=== PATIENT | female | born 1990 | race American Indian/Alaskan Native ===

== ENCOUNTER 2019-04-04 11:32 | Emergency (ER) | payer SELFPAY ==
--- NOTE | 2019-04-04 11:50 | Event Note ---
ED Screening Note Date of service: 04/04/19 Time: 11:47 ED Screening Note: 28 y o female presents with cc of chest pain with vomitting x 4 episodes today sx started 3 days no apettite due to nausea This initial assessment/diagnostic orders/clinical plan/treatment(s) is/are subject to change based on patients health status, clinical progression and re- assessment by fellow clinical providers in the ED. Further treatment and workup at subsequent clinical providers discretion. Patient/guardian urged not to elope from the ED as their condition may be serious if not clinically assessed and managed. Initial orders include: cbc,bmp, cxr,ua, upt
[2019-04-04 12:06] LABS: Basophils # (Auto) 0.1 K/mm3 (0.0-0.1); Basophils % (Auto) 1.2 % (0.0-1.8); Eosinophils # (Auto) 0.2 K/mm3 (0.0-0.4); Eosinophils % (Auto) 2.4 % (0.0-4.3); Hemoglobin 15.1 gm/dl (10.1-14.3); Lymphocytes # (Auto) 2.5 K/mm3 (1.2-5.4); Lymphocytes % (Auto) 32.4 % (13.4-35.0); Mean Corpuscular HGB Conc 34 % (30-34); Mean Corpuscular Volume 95 fl (79-97); Monocytes # (Auto) 0.5 K/mm3 (0.0-0.8); Monocytes % (Auto) 6.5 % (0.0-7.3); Platelet Count 335 K/mm3 (140-440); Red Blood Count 4.65 M/mm3 (3.65-5.03); Red Cell Distribution Width 13.4 % (13.2-15.2)
[2019-04-04 12:24] LABS: BUN/Creatinine Ratio 13; Blood Urea Nitrogen 10 mg/dL (7-17); Calcium 8.8 mg/dL (8.4-10.2); Hemolysis Index 15
[2019-04-04 12:31] LABS: Bilirubin,Urine NEG (Negative); Blood,Urine SM (Negative); Color,Urine Yellow (Yellow); HCG Qualitative,Urine Negative (Negative); Mucus,Urine FEW /HPF; Protein,Urine <15 mg/dL mg/dL (Negative); Urobilinogen,Urine < 2.0 mg/dL (<2.0)
--- NOTE | 2019-04-04 12:31 | Emergency Department Report ---
ED Shortness of Breath HPI - General Chief Complaint: Dyspnea/Respdistress Stated Complaint: SOB/SHARP PAIN Time Seen by Provider: 04/04/19 11:45 Source: EMS Mode of arrival: Ambulatory Limitations: No Limitations - History of Present Illness Initial Comments: Patient is 28 years old female with no significant past medical history. Patient presented to the ER via EMS complaining of chest pain, tightness in nature for the last 4 days associated with shortness of breath. Patient stated that she had a history of chronic anxiety and she think this is another episode. Patient denied any fever or chills. She stated that she is slightly nauseated and vomited twice this morning. MD Complaint: shortness of breath, chest pain -: days(s) (4) - Related Data Previous Rx's Medication Instructions Recorded Last Taken Type Ondansetron [Zofran ODT TAB] 4 mg PO Q8HR PRN #12 tab.rapdis 10/07/16 Unknown Rx metroNIDAZOLE [Flagyl] 500 mg PO Q12HR #14 tab 10/07/16 Unknown Rx traMADol [Ultram 50 MG tab] 50 mg PO Q6HR PRN #15 tablet 10/07/16 Unknown Rx Allergies Allergy/AdvReac Type Severity Reaction Status Date / Time No Known Allergies Allergy Verified 10/02/14 04:48 ED Review of Systems ROS: Stated complaint: SOB/SHARP PAIN Other details as noted in HPI Comment: All other systems reviewed and negative Constitutional: denies: chills, fever Respiratory: shortness of breath. denies: cough, orthopnea, SOB with exertion, SOB at rest Cardiovascular: chest pain. denies: palpitations Gastrointestinal: nausea, vomiting. denies: abdominal pain, diarrhea, constipation, hematemesis, melena, hematochezia Genitourinary: denies: dysuria Musculoskeletal: denies: back pain ED Past Medical Hx - Past Medical History Previous Medical History?: Yes Additional medical history: Vaginal delivery x 1 - Surgical History Past Surgical History?: No - Social History Smoking Status: Current Every Day Smoker Substance Use Type: Alcohol, Marijuana - Medications Home Medications: Home Medications Medication Instructions Recorded Confirmed Last Taken Type Ondansetron [Zofran ODT TAB] 4 mg PO Q8HR PRN #12 tab.rapdis 10/07/16 Unknown Rx metroNIDAZOLE [Flagyl] 500 mg PO Q12HR #14 tab 10/07/16 Unknown Rx traMADol [Ultram 50 MG tab] 50 mg PO Q6HR PRN #15 tablet 10/07/16 Unknown Rx ED Physical Exam - General Limitations: No Limitations General appearance: alert, in no apparent distress, anxious - Head Head exam: Present: atraumatic, normocephalic, normal inspection - Eye Eye exam: Present: normal appearance, PERRL - ENT ENT exam: Present: normal exam, normal orophraynx, mucous membranes moist - Neck Neck exam: Present: normal inspection, full ROM. Absent: tenderness, meningismus, lymphadenopathy - Respiratory Respiratory exam: Present: normal lung sounds bilaterally - Cardiovascular Cardiovascular Exam: Present: regular rate, normal rhythm, normal heart sounds - GI/Abdominal GI/Abdominal exam: Present: soft, normal bowel sounds. Absent: distended, tenderness, guarding, rebound, rigid, organomegaly, mass, bruit, pulsatile mass, hernia - Extremities Exam Extremities exam: Present: normal inspection, full ROM, normal capillary refill - Back Exam Back exam: Present: normal inspection, full ROM. Absent: CVA tenderness (R), CVA tenderness (L), muscle spasm, paraspinal tenderness, vertebral tenderness - Neurological Exam Neurological exam: Present: alert, oriented X3, CN II-XII intact, normal gait, reflexes normal - Skin Skin exam: Present: warm, intact, normal color ED Course Vital Signs 04/04/19 11:36 Temperature 98.3 F Pulse Rate 70 Respiratory 18 Rate Blood Pressure 123/72 O2 Sat by Pulse 99 Oximetry ED Medical Decision Making - Lab Data Result diagrams: 04/04/19 11:56 04/04/19 11:56 - EKG Data -: EKG Interpreted by Dc EKG shows normal: sinus rhythm - EKG Data Interpretation: no acute changes - Radiology Data Radiology results: report reviewed - Medical Decision Making Patient is 28 years old female with no significant past medical history. Patient presented to the ER via EMS complaining of chest pain, tightness in nature for the last 4 days associated with shortness of breath. Patient stated that she had a history of chronic anxiety and she think this is another episode. Patient denied any fever or chills. She stated that she is slightly nauseated and vomited twice this morning. Patient EKG is unremarkable. Chest x-ray is unremarkable. D-dimer is negative. Patient now is stating that she feels depressed and anxious because her friends in the last 2 month. Patient denied any suicidal or homicidal ideation. Patient also denied any auditory or visual hallucination. Patient evaluated by our mental health team and referred to outpatient follow- up. Critical care attestation.: If time is entered above; I have spent that time in minutes in the direct care of this critically ill patient, excluding procedure time. ED Disposition Clinical Impression: Chest pain, Anxiety attack Disposition: - TO HOME OR SELFCARE Is pt being admited?: No Condition: Stable Instructions: Chest Pain (ED), Anxiety (ED) Referrals: PRIMARY CARE, [Primary Care Provider] - 3-5 Days
--- NOTE | 2019-04-04 15:53 | XRay Report ---
CHEST 1 VIEW INDICATION / CLINICAL INFORMATION: Dyspnea. COMPARISON: None available. FINDINGS: SUPPORT DEVICES: None. HEART / MEDIASTINUM: No significant abnormality. LUNGS / PLEURA: No significant pulmonary or pleural abnormality. No pneumothorax. ADDITIONAL FINDINGS: No significant additional findings. IMPRESSION: 1. No acute findings. Signer Name: López Tobias MD Signed: 04/04/2019 3:48 PM Workstation Name: [id number]
[2019-04-04 16:32] VITALS: BP 118/68
== END 2019-04-04 16:31 | disposition home or self-care (01) ==
LOC: ED 11:32
DX: F41.9 Anxiety disorder, unspecified (principal); R07.89 Other chest pain; F17.200 Nicotine dependence, unspecified, uncomplicated; F12.10 Cannabis abuse, uncomplicated; Z79.899 Other long term (current) drug therapy
CPT/HCPCS: 36415; 71046; 80048; 81001; 81025; 83690; 83880; 85025; 85379; 93005; 93010; 99284

== ENCOUNTER 2021-03-10 13:48 | Emergency (ER) | payer SELFPAY ==
[2021-03-10 15:11] VITALS: BP 120/77
--- NOTE | 2021-03-10 17:20 | Emergency Department Report ---
ED Extremity Problem HPI - General Chief complaint: Extremity Problem,Nontraumatic Stated complaint: BRUISES ON LEG Time Seen by Provider: 03/10/21 16:51 Source: patient Mode of arrival: Ambulatory Limitations: No Limitations - History of Present Illness Initial comments: Is a pleasant 30-year-old female who presents to the emergency department chief complaint of a ecchymosis to the left posterior calf. She denies any injuries. She reports she has noticed this today after work. She denies any associated fevers, chills, night sweats, headache, dizziness, blurry vision, chest pain, shortness of breath, weakness or any other associated symptoms. - Related Data Previous Rx's Medication Instructions Recorded Last Taken Type Ondansetron [Zofran ODT TAB] 4 mg PO Q8HR PRN #12 tab.rapdis 10/07/16 Unknown Rx metroNIDAZOLE [Flagyl] 500 mg PO Q12HR #14 tab 10/07/16 Unknown Rx traMADoL [Ultram 50 MG tab] 50 mg PO Q6HR PRN #15 tablet 10/07/16 Unknown Rx ALPRAZolam [Xanax TAB] 0.5 mg PO BID PRN #14 tab 04/04/19 Unknown Rx Allergies Allergy/AdvReac Type Severity Reaction Status Date / Time No Known Allergies Allergy Verified 10/02/14 04:48 ED Review of Systems ROS: Stated complaint: BRUISES ON LEG Other details as noted in HPI Constitutional: denies: chills, fever Eyes: denies: eye pain, eye discharge, vision change ENT: denies: ear pain, throat pain Respiratory: denies: cough, shortness of breath, wheezing Cardiovascular: denies: chest pain, palpitations Endocrine: no symptoms reported Gastrointestinal: denies: abdominal pain, nausea, diarrhea Genitourinary: denies: urgency, dysuria, discharge Musculoskeletal: as per HPI. denies: back pain, joint swelling, arthralgia Skin: denies: rash, lesions Neurological: denies: headache, weakness, paresthesias Psychiatric: denies: anxiety, depression Hematological/Lymphatic: denies: easy bleeding, easy bruising ED Past Medical Hx - Past Medical History Previous Medical History?: No Additional medical history: Vaginal delivery x 1 - Surgical History Past Surgical History?: No - Social History Smoking Status: Current Every Day Smoker Substance Use Type: Alcohol, Marijuana - Medications Home Medications: Home Medications Medication Instructions Recorded Confirmed Last Taken Type Ondansetron [Zofran ODT TAB] 4 mg PO Q8HR PRN #12 tab.rapdis 10/07/16 Unknown Rx metroNIDAZOLE [Flagyl] 500 mg PO Q12HR #14 tab 10/07/16 Unknown Rx traMADoL [Ultram 50 MG tab] 50 mg PO Q6HR PRN #15 tablet 10/07/16 Unknown Rx ALPRAZolam [Xanax TAB] 0.5 mg PO BID PRN #14 tab 04/04/19 Unknown Rx ED Physical Exam - General Limitations: No Limitations General appearance: alert, in no apparent distress - Head Head exam: Present: atraumatic, normocephalic - Eye Eye exam: Present: normal appearance, PERRL, EOMI Pupils: Present: normal accommodation - ENT ENT exam: Present: normal exam, normal orophraynx, mucous membranes moist - Neck Neck exam: Present: normal inspection, full ROM. Absent: tenderness, meningismus - Respiratory Respiratory exam: Present: normal lung sounds bilaterally. Absent: respiratory distress, wheezes, rales, rhonchi, stridor - Cardiovascular Cardiovascular Exam: Present: regular rate, normal rhythm, normal heart sounds. Absent: systolic murmur, diastolic murmur, rubs, gallop - GI/Abdominal GI/Abdominal exam: Present: soft, normal bowel sounds. Absent: distended, tenderness, guarding - Extremities Exam Extremities exam: Present: full ROM, other (There is a 6 cm area of ecchymosis to the left posterior calf. No tenderness palpation. Negative Homans' sign bilaterally. Normal DP and PT pulses bilaterally.) - Back Exam Back exam: Present: normal inspection, full ROM. Absent: tenderness, CVA tenderness (R), CVA tenderness (L) - Neurological Exam Neurological exam: Present: alert, oriented X3, normal gait - Psychiatric Psychiatric exam: Present: normal affect, normal mood - Skin Skin exam: Present: warm, dry, intact, normal color. Absent: rash ED Course Vital Signs 03/10/21 15:10 Temperature 98.7 F Pulse Rate 98 H Respiratory 18 Rate Blood Pressure 120/77 [Right] O2 Sat by Pulse 100 Oximetry ED Medical Decision Making - Medical Decision Making Patient is nontoxic in no acute distress. She is PERC negative and a low risk by Wells criteria. She did have this area of ecchymosis I did order an ultrasound Doppler to rule out DVT however the patient decided she cannot wait for this test and said she wanted to leave. Patient understood that I cannot rule out an acute process such as DVT although I think this is unlikely at this time. She understood that by leaving she was risking her life or event apartment disability if DVT was missed. She is competent and able to make this decision. At this time would not make the patient sign out AGAINST MEDICAL ADVICE due to my low suspicion for DVT but she understood that she could return at any point to have this test done and for reevaluation. - Differential Diagnosis Traumatic ecchymosis, cellulitis, DVT Critical care attestation.: If time is entered above; I have spent that time in minutes in the direct care of this critically ill patient, excluding procedure time. ED Disposition Clinical Impression: Ecchymosis Disposition: DC-01 TO HOME OR SELFCARE Is pt being admited?: No Condition: Stable Instructions: Contusion, [id number] Referrals: PRIMARY CARE, [Primary Care Provider] - 3-5 Days Time of Disposition: 17:20
== END 2021-03-10 17:22 | disposition home or self-care (01) ==
LOC: ED 13:48
DX: S80.12XA Contusion of left lower leg, initial encounter (principal); F17.290 Nicotine dependence, other tobacco product, uncomplicated; X58.XXXA Exposure to other specified factors, initial encounter; Y93.89 Activity, other specified; Y92.89 Other specified places as the place of occurrence of the external cause; Y99.8 Other external cause status
CPT/HCPCS: 99281

== ENCOUNTER 2022-01-09 10:46 | Outpatient (CLI) | payer OTHER ==
[2022-01-09 12:51] VITALS: BP 116/58
--- NOTE | 2022-01-09 14:09 | Ultrasound Report ---
ULTRASOUND OBSTETRIC LIMITED ULTRASOUND BIOPHYSICAL PROFILE INDICATION / CLINICAL INFORMATION: Full WILLIAM. Clinical Gestational Age (GA) in weeks, days: 39, 1 TECHNIQUE: Transabdominal. COMPARISON: None available. FINDINGS: BREATHING MOVEMENT = 2 GROSS BODY MOVEMENT = 2 TONE = 2 QUALITATIVE AMNIOTIC FLUID VOLUME = 2 TOTAL BIOPHYSICAL SCORE = 8/8 HEART RATE (beats per minute): 152 AMNIOTIC FLUID INDEX (cm) = 7.3 (normal = 7-24 cm) PRESENTATION: Cephalic. ADDITIONAL FINDINGS: None. IMPRESSION: 1. Biophysical Score = 8/8 2. Amniotic fluid index lower limits of normal. Signer Name: Oscar Carroll MD Signed: 01/09/2022 2:04 PM Workstation Name: [id number]
== END 2022-01-09 16:21 | disposition home or self-care (01) ==
LOC: APU 10:46 → TRG 10:46
PROVIDERS: ATTEND Obstetrics & Gynecology
DX: Z34.93 Encounter for supervision of normal pregnancy, unspecified, third trimester (principal); Z3A.39 39 weeks gestation of pregnancy
CPT/HCPCS: 59025; 76815; 76819; Q0177

== ENCOUNTER 2022-01-22 16:12 | Inpatient (IN) | payer OTHER ==
[2022-01-22] MEDS ORDERED: PROMETHAZINE 25 MG TAB PO PRN (17:54)
[2022-01-22] MEDS ORDERED: LIDOCAINE (2%) 20 MG/1 ML VIAL 20 ML MDV INFILTRATI ONE (17:54)
[2022-01-22] MEDS ORDERED: ACETAMINOPHEN 325 MG TAB PO PRN (17:54)
[2022-01-22] MEDS ORDERED: fentaNYL 100 MCG/2 ML INJ IV PRN (17:54)
[2022-01-22] MEDS ORDERED: BUTORPHANOL 2 MG/1 ML INJ IV PRN (17:54)
[2022-01-22] MEDS ORDERED: TERBUTALINE 1 MG/1 ML INJ SUB-Q PRN (17:54)
[2022-01-22] MEDS ORDERED: MINERAL OIL 30 ML ORAL LIQD PO PRN (17:54)
[2022-01-22] MEDS ORDERED: ePHEDrine SULFATE 50 MG/1 ML INJ IV PRN (17:54)
[2022-01-22] MEDS ORDERED: ONDANSETRON 4 MG/2 ML INJ IV PRN (17:54)
[2022-01-22] MEDS ORDERED: OXYTOCIN DRIP 30 UNITS/500 ML BAG IV SCH (18:00)
--- NOTE | 2022-01-22 18:49 | History and Physical Report ---
<DAVID GRULLON G - Last Filed: 01/22/22 18:45> History of Present Illness Date of examination: 01/22/22 Date of admission: 01/22/22 16:13 History of present illness: Patient presented for induction. This is a 31-year-old female at 41 weeks who was seen in office today for evaluation and ultrasound revealed a amniotic fluid index of 4.7 cm. 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 no EDC Confirmation: 01/15/2022 Past History : 2 Term Births: 1 Premature Births: 0 Living Children: 1 Para: 1 Mult. Births: 0 Prev : 0 Aborta: 0 Elect. Ab: 0 Spont. Ab: 0 Ectopics: 0 # 1 Delivery date: 02/28/2010 Weeks Gestation: 40 Delivery type: Vaginal Anesthesia type: epidural Delivery location: [facility] Sex: male weight: 8lbs Name: Felipe Comments: no complications Past Medical History: Negative Past Medical History Past Surgical History: negative Family History Summary: Mother - Has Family History of Diabetes - General Comments - FH: NO BREAST, OVARIAN OR COLON CANCER Social History: SINGLE, NO ETOH, NO ILLICIT DRUG USE, NO TOBACCO USE Patient is single Smoking History: Patient has never smoked. 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 % Family History Risk Factors: Family History of AR in 1 Female Relative Age < 65: no Family History of AR in 1 Male Relative Age < 55: no No Dietary Counseling Reason: pn yes PAP Smear History: Date of Last PAP Smear: 09/05/2020 Results: Normal Alcohol Use: no Drug Use: no Past Medical History Anesthesia Complications: negative Anemia: negative Autoimmune Disorder: negative Bleeding Disorder: negative Blood Transfusions: negative Breast Disease: negative Diabetes: negative Heart Disease: negative Hypertension: negative Hepatitis/Liver Disease: negative Kidney Disease/UTI: negative Neurologic/Epilepsy/Migraines: negative Phlebitis/Varicosities: negative Psychiatric: negative Pulmonary Disease/Asthma: negative Thyroid Disease: negative Hospitalizations: negative Surgery (Non-tattoo designer): negative Abnormal PAP: negative, reports normal pap results sep 2020 MASOUD Exposure: negative Infertility: negative Uterine Anomaly: negative Uterine Surgery (not C/S): negative Other Gynecologic Problems: negative Social Hx: SINGLE, NO ETOH, NO ILLICIT DRUG USE, NO TOBACCO USE Patient is single Smoking History: Patient has never smoked. Infection History Hx of STD: none HIV Risk Eval: no Hepatitis B Risk Eval: low risk Personal hx. of genital herpes: no Partner hx. of genital herpes: no Rash, Viral, or Febrile illness since last LMP? no Varicella/Chicken Pox Status: Unknown TB Risk: no Genetic History Congenital Heart Defect: Mom: no Dad: no Frannie Disease: Mom: no Dad: no Thalassemia Mom: no Dad: no Neural Tube Defect Mom: no Dad: no Down's Syndrome Mom: no Dad: no Mark-Sachs Mom: no Dad: no Sickle Cell Disease/Trait Mom: no Dad: no Hemophilia Mom: no Dad: no Muscular Dystrophy Mom: no Dad: no Cystic Fibrosis Mom: no Dad: no Gelacio Chorea Mom: no Dad: no Mental Retardation Mom: no Dad: no Fragile X Mom: no Dad: no Other Genetic/Chromosomal Disorder Mom: no Dad: no Child w/other defect Mom: no Dad: no Enviromental Exposures Enviromental Exposures Reviewed Xray Exposure: no Medication, drug, or alcohol use since LMP: no Chemical/Other Exposure: no Exposure to Cat Liter: no Hx of Parvovirus (Fifth Disease): no Occupational Exposure to Children: none Current Allergies (reviewed today): No known allergies Past History Past Medical History: other (SEE HPI) Past Surgical History: other (SEE HPI) 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 (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) Family/Genetic History: other (SEE HPI) Social history: full code, other (SEE HPI) - Obstetrical History Expected Date of Delivery: 01/15/22 Actual Gestation: 41 Week(s) 0 Day(s) : 2 Para: 1 Hx # Term Pregnancies: 1 Number of Pregnancies: 0 Spontaneous Abortions: 0 Induced : 0 Number of Living Children: 1 Medications and Allergies Allergies Allergy/AdvReac Type Severity Reaction Status Date / Time No Known Allergies Allergy Verified 10/02/14 04:48 Home Medications Medication Instructions Recorded Confirmed Last Taken Type Ondansetron [Zofran ODT TAB] 4 mg PO Q8HR PRN #12 tab.rapdis 10/07/16 Unknown Rx metroNIDAZOLE [Flagyl] 500 mg PO Q12HR #14 tab 10/07/16 Unknown Rx traMADoL [Ultram 50 MG tab] 50 mg PO Q6HR PRN #15 tablet 10/07/16 Unknown Rx ALPRAZolam [Xanax TAB] 0.5 mg PO BID PRN #14 tab 04/04/19 Unknown Rx Amoxicillin [Amoxicillin TAB] 875 mg PO BID #20 tablet 07/31/21 Unknown Rx Lidocaine Viscous 2% 5 ml MM Q4H #240 udc 07/31/21 Unknown Rx Active Meds: Active Medications Acetaminophen (Acetaminophen 325 Mg Tab) 650 mg PO Q4H PRN PRN Reason: Pain, Mild (1-3) Butorphanol Tartrate (Butorphanol 2 Mg/1 Ml Inj) 2 mg IV Q2H PRN PRN Reason: Pain , Severe (7-10) Ephedrine Sulfate (Ephedrine Sulfate 50 Mg/1 Ml Inj) 10 mg IV Q2M PRN PRN Reason: Hypotension Fentanyl (Fentanyl 100 Mcg/2 Ml Inj) 100 mcg IV Q2H PRN PRN Reason: Pain , Severe (7-10) Lactated Ringer's (Lactated Ringers) 1,000 mls @ 125 mls/hr IV DIRECT TONY Oxytocin/Sodium Chloride (Pitocin/Ns 30 Unit/500ml) 30 units in 500 mls @ 40 mls/hr IV TITR TONY; Protocol Mineral Oil (Mineral Oil 30 Ml Oral Liqd) 30 ml PO QHS PRN PRN Reason: Constipation Ondansetron HCl (Ondansetron 4 Mg/2 Ml Inj) 4 mg IV Q8H PRN PRN Reason: Nausea And Vomiting Promethazine HCl (Promethazine 25 Mg Tab) 25 mg PO Q6H PRN PRN Reason: Nausea And Vomiting Terbutaline Sulfate (Terbutaline 1 Mg/1 Ml Inj) 0.25 mg SUB-Q ONCE PRN PRN Reason: Hyperstimulation/Hypertonicity - Vital Signs Vital signs: Vital Signs Pulse BP 88 108/75 01/22/22 17:00 01/22/22 17:00 Temp Pulse Resp BP Pulse Ox 98.4 F 78 16 129/62 98 01/22/22 17:14 01/22/22 18:43 01/22/22 17:14 01/22/22 18:42 01/22/22 18:43 - Physical Exam Breasts: Positive: deferred Cardiovascular: Regular rate Lungs: Positive: Normal air movement Abdomen: Positive: normal appearance Uterus: Positive: enlarged - Obstetrical FHR: category 1 Uterine Contraction Pattern: Absent Results All other labs normal. Assessment and Plan - Patient Problems (1) Post term at 41 weeks gestation Current Visit: Yes Status: Acute Plan to address problem: Patient is admitted for serial induction. Explained the nature of serial induction with the patient will have cervical ripening done this evening with Pitocin plan on tomorrow. (2) Oligohydramnios in siddiqi in third trimester Current Visit: Yes Status: Acute (3) BMI 37.0-37.9, adult Current Visit: Yes Status: Acute <NELSON RIVERS - Last Filed: 01/22/22 22:30> History of Present Illness Date of admission: 01/22/22 16:13 Past History Past Medical History: no pertinent history Past Surgical History: no surgical history Family/Genetic History: none Social history: no significant social history Medications and Allergies Active Meds: Active Medications Acetaminophen (Acetaminophen 325 Mg Tab) 650 mg PO Q4H PRN PRN Reason: Pain, Mild (1-3) Butorphanol Tartrate (Butorphanol 2 Mg/1 Ml Inj) 2 mg IV Q2H PRN PRN Reason: Pain , Severe (7-10) Ephedrine Sulfate (Ephedrine Sulfate 50 Mg/1 Ml Inj) 10 mg IV Q2M PRN PRN Reason: Hypotension Fentanyl (Fentanyl 100 Mcg/2 Ml Inj) 100 mcg IV Q2H PRN PRN Reason: Pain , Severe (7-10) Lactated Ringer's (Lactated Ringers) 1,000 mls @ 125 mls/hr IV DIRECT TONY Oxytocin/Sodium Chloride (Pitocin/Ns 30 Unit/500ml) 30 units in 500 mls @ 40 m ls/hr IV TITR TONY; Protocol Mineral Oil (Mineral Oil 30 Ml Oral Liqd) 30 ml PO QHS PRN PRN Reason: Constipation Ondansetron HCl (Ondansetron 4 Mg/2 Ml Inj) 4 mg IV Q8H PRN PRN Reason: Nausea And Vomiting Promethazine HCl (Promethazine 25 Mg Tab) 25 mg PO Q6H PRN PRN Reason: Nausea And Vomiting Terbutaline Sulfate (Terbutaline 1 Mg/1 Ml Inj) 0.25 mg SUB-Q ONCE PRN PRN Reason: Hyperstimulation/Hypertonicity Review of Systems All systems: negative - Vital Signs Vital signs: Vital Signs Pulse BP 88 108/75 01/22/22 17:00 01/22/22 17:00 Temp Pulse Resp BP Pulse Ox 98.4 F 78 18 126/69 88 01/22/22 21:17 01/22/22 22:13 01/22/22 21:17 01/22/22 22:13 01/22/22 22:12 Results Result Diagrams: 01/22/22 18:40 All other labs normal. GBS NEGATIVE A Positive Antibody Screen Negative HIV Negative Hep B Negative Hep C Negative Rubella IMMUNE Assessment and Plan A: 31 y.o. @ 41 wks, IOL d/t postdates and Oligohydramnios. - Patient Problems (1) Oligohydramnios in siddiqi in third trimester Current Visit: Yes Status: Acute Plan to address problem: Continue to monitor status through EFM. (2) Post term at 41 weeks gestation Current Visit: Yes Status: Acute Plan to address problem: Admit to labor and delivery. Initiate IV. Draw Admission labs. Pain management: IV pain medication and epidural when pt desires. Initiate IOL with Cervidil.
[2022-01-22 19:08] LABS: Hematocrit 39.2 % (30.3-42.9); Hemoglobin 13.4 gm/dl (10.1-14.3); Mean Corpuscular HGB Conc 34 % (30-34); Mean Corpuscular Volume 89 fl (79-97); Platelet Count 237 K/mm3 (140-440); Red Blood Count 4.39 M/mm3 (3.65-5.03); Red Cell Distribution Width 14.8 % (13.2-15.2)
[2022-01-22] MEDS ORDERED: DINOPROSTONE 10 MG VAG SUPP VG ONE (19:22)
[2022-01-22] MEDS: LACTATED RINGERS 1,000 ML IV SCH (21:10)
--- NOTE | 2022-01-22 22:23 | Event Note ---
Date: 01/22/22 Cervidil placed at 2217 without difficulty. Cervical exam /.
--- NOTE | 2022-01-23 07:31 | Event Note ---
Date: 01/23/22 CAT 1 tracing, cervidil to be removed @ 1015 this morning. Plan to allow AM care and a lite meal, then start pitocin by 1200. All questions address, patient agrees with plan of care. Plan also reviewed with lindsey GONZALEZ.
[2022-01-23] MEDS: LACTATED RINGERS 1,000 ML IV SCH ×2 (10:30→18:53)
[2022-01-23] MEDS ORDERED: OXYTOCIN DRIP 30 UNITS/500 ML BAG IV ONE (11:00)
[2022-01-23] MEDS ORDERED: LIDOCAINE MPF (2%) 20 MG/1 ML VIAL 5 ML ONE ×3 (13:52→23:42)
[2022-01-23] MEDS: fentaNYL-BUPIV 2 MCG/ML-0.125% 200 MCG/100 ML BAG EPIDURAL SCH ×2 (14:19→21:57)
--- NOTE | 2022-01-23 14:24 | Progress Note ---
Assessment and Plan Pt comfortable s/p epidural. continue titration of pitocin as needed to maintain adequate ctx. SVE done - no obvious BOW noted. Pt denies previous leaking. no s/s of SROM on perineum or bed. Will reeval PRN. All questions addressed, anticipate . Subjective - Subjective Date of service: 01/23/22 Principal diagnosis: IUP @ 41+1; IOL for oligo and postdates Patient reports: no new complaints Objective - Vital Signs Vital Signs: Vital Signs - 12hr 01/23/22 01/23/22 01/23/22 02:24 02:27 02:28 Temperature Pulse Rate 71 78 73 Respiratory Rate Blood Pressure 143/69 Blood Pressure [Left] O2 Sat by Pulse 92 96 Oximetry O2 Sat by Pulse Oximetry [ Bilateral Throughout] 01/23/22 01/23/22 01/23/22 02:33 02:37 02:38 Temperature Pulse Rate 80 83 84 Respiratory Rate Blood Pressure Blood Pressure [Left] O2 Sat by Pulse 96 94 95 Oximetry O2 Sat by Pulse Oximetry [ Bilateral Throughout] 01/23/22 01/23/22 01/23/22 02:42 02:45 02:50 Temperature Pulse Rate 156 H 83 Respiratory Rate Blood Pressure Blood Pressure [Left] O2 Sat by Pulse 89 86 98 Oximetry O2 Sat by Pulse Oximetry [ Bilateral Throughout] 01/23/22 01/23/22 01/23/22 02:55 02:57 03:02 Temperature Pulse Rate 88 86 Respiratory Rate Blood Pressure Blood Pressure [Left] O2 Sat by Pulse 96 94 91 Oximetry O2 Sat by Pulse Oximetry [ Bilateral Throughout] 01/23/22 01/23/22 01/23/22 03:04 03:09 03:12 Temperature Pulse Rate 85 83 79 Respiratory Rate Blood Pressure 125/58 Blood Pressure [Left] O2 Sat by Pulse 99 97 Oximetry O2 Sat by Pulse Oximetry [ Bilateral Throughout] 01/23/22 01/23/22 01/23/22 03:14 03:15 03:19 Temperature Pulse Rate 80 90 74 Respiratory Rate Blood Pressure Blood Pressure [Left] O2 Sat by Pulse 97 94 99 Oximetry O2 Sat by Pulse Oximetry [ Bilateral Throughout] 01/23/22 01/23/22 01/23/22 03:22 03:24 03:27 Temperature Pulse Rate 81 86 76 Respiratory Rate Blood Pressure 125/60 Blood Pressure [Left] O2 Sat by Pulse 93 99 Oximetry O2 Sat by Pulse Oximetry [ Bilateral Throughout] 01/23/22 01/23/22 01/23/22 03:29 03:34 03:39 Temperature Pulse Rate 79 75 78 Respiratory Rate Blood Pressure Blood Pressure [Left] O2 Sat by Pulse 98 96 97 Oximetry O2 Sat by Pulse Oximetry [ Bilateral Throughout] 01/23/22 01/23/22 01/23/22 03:42 03:44 03:49 Temperature Pulse Rate 78 81 80 Respiratory Rate Blood Pressure 124/60 Blood Pressure [Left] O2 Sat by Pulse 97 97 Oximetry O2 Sat by Pulse Oximetry [ Bilateral Throughout] 01/23/22 01/23/22 01/23/22 03:54 03:58 03:59 Temperature Pulse Rate 80 82 79 Respiratory Rate Blood Pressure 125/65 Blood Pressure [Left] O2 Sat by Pulse 97 97 Oximetry O2 Sat by Pulse Oximetry [ Bilateral Throughout] 01/23/22 01/23/22 01/23/22 04:04 04:07 04:09 Temperature Pulse Rate 88 76 84 Respiratory Rate Blood Pressure Blood Pressure [Left] O2 Sat by Pulse 97 94 96 Oximetry O2 Sat by Pulse Oximetry [ Bilateral Throughout] 01/23/22 01/23/22 01/23/22 04:10 04:12 04:14 Temperature 98.0 F Pulse Rate 78 90 Respiratory Rate Blood Pressure 121/61 Blood Pressure [Left] O2 Sat by Pulse 94 Oximetry O2 Sat by Pulse Oximetry [ Bilateral Throughout] 01/23/22 01/23/22 01/23/22 04:19 04:20 04:24 Temperature Pulse Rate 76 75 89 Respiratory Rate Blood Pressure Blood Pressure [Left] O2 Sat by Pulse 97 93 99 Oximetry O2 Sat by Pulse Oximetry [ Bilateral Throughout] 01/23/22 01/23/22 01/23/22 04:27 04:29 04:30 Temperature Pulse Rate 78 76 93 H Respiratory Rate Blood Pressure 142/65 Blood Pressure [Left] O2 Sat by Pulse 97 93 Oximetry O2 Sat by Pulse Oximetry [ Bilateral Throughout] 01/23/22 01/23/22 01/23/22 04:34 04:35 04:39 Temperature Pulse Rate 83 83 90 Respiratory Rate Blood Pressure Blood Pressure [Left] O2 Sat by Pulse 96 94 99 Oximetry O2 Sat by Pulse Oximetry [ Bilateral Throughout] 01/23/22 01/23/2201/23/22 04:41 04:42 04:44 Temperature Pulse Rate 83 87 90 Respiratory Rate Blood Pressure 138/64 Blood Pressure [Left] O2 Sat by Pulse 93 98 Oximetry O2 Sat by Pulse Oximetry [ Bilateral Throughout] 01/23/22 01/23/22 01/23/22 04:49 04:50 04:54 Temperature 98.0 F Pulse Rate 93 H 82 Respiratory Rate Blood Pressure Blood Pressure [Left] O2 Sat by Pulse 94 93 Oximetry O2 Sat by Pulse Oximetry [ Bilateral Throughout] 01/23/22 01/23/22 01/23/22 04:55 04:57 04:59 Temperature Pulse Rate 95 H 80 84 Respiratory Rate Blood Pressure 142/71 Blood Pressure [Left] O2 Sat by Pulse 91 97 Oximetry O2 Sat by Pulse Oximetry [ Bilateral Throughout] 01/23/22 01/23/22 01/23/22 05:04 05:09 05:12 Temperature Pulse Rate 79 84 77 Respiratory Rate Blood Pressure 147/65 Blood Pressure [Left] O2 Sat by Pulse 98 99 Oximetry O2 Sat by Pulse Oximetry [ Bilateral Throughout] 01/23/22 01/23/22 01/23/22 05:14 05:19 05:21 Temperature Pulse Rate 79 79 59 L Respiratory Rate Blood Pressure Blood Pressure [Left] O2 Sat by Pulse 98 97 82 L Oximetry O2 Sat by Pulse Oximetry [ Bilateral Throughout] 01/23/22 01/23/22 01/23/22 05:27 05:28 05:32 Temperature Pulse Rate 84 78 79 Respiratory Rate Blood Pressure 134/61 Blood Pressure [Left] O2 Sat by Pulse 99 98 Oximetry O2 Sat by Pulse Oximetry [ Bilateral Throughout] 01/23/22 01/23/22 01/23/22 05:37 05:42 05:43 Temperature Pulse Rate 74 77 81 Respiratory Rate Blood Pressure 143/61 Blood Pressure [Left] O2 Sat by Pulse 99 99 Oximetry O2 Sat by Pulse Oximetry [ Bilateral Throughout] 01/23/22 01/23/22 01/23/22 05:47 05:52 05:57 Temperature Pulse Rate 82 79 75 Respiratory Rate Blood Pressure 111/54 Blood Pressure [Left] O2 Sat by Pulse 99 98 99 Oximetry O2 Sat by Pulse Oximetry [ Bilateral Throughout] 01/23/22 01/23/22 01/23/22 06:02 06:07 06:12 Temperature Pulse Rate 77 81 75 Respiratory Rate Blood Pressure 114/55 Blood Pressure [Left] O2 Sat by Pulse 98 98 96 Oximetry O2 Sat by Pulse Oximetry [ Bilateral Throughout] 01/23/22 01/23/22 01/23/22 06:17 06:22 06:27 Temperature Pulse Rate 86 79 75 Respiratory Rate Blood Pressure 117/54 Blood Pressure [Left] O2 Sat by Pulse 99 97 97 Oximetry O2 Sat by Pulse Oximetry [ Bilateral Throughout] 01/23/22 01/23/22 01/23/22 06:32 06:34 06:37 Temperature Pulse Rate 75 74 89 Respiratory Rate Blood Pressure Blood Pressure [Left] O2 Sat by Pulse 98 93 98 Oximetry O2 Sat by Pulse Oximetry [ Bilateral Throughout] 01/23/22 01/23/22 01/23/22 06:42 06:47 06:51 Temperature Pulse Rate 84 83 Respiratory Rate Blood Pressure 112/59 Blood Pressure [Left] O2 Sat by Pulse 99 99 82 L Oximetry O2 Sat by Pulse Oximetry [ Bilateral Throughout] 01/23/22 01/23/22 01/23/22 06:52 06:56 06:57 Temperature Pulse Rate 62 78 Respiratory Rate Blood Pressure 147/75 Blood Pressure [Left] O2 Sat by Pulse 86 90 Oximetry O2 Sat by Pulse Oximetry [ Bilateral Throughout] 01/23/22 01/23/22 01/23/22 06:58 07:03 07:07 Temperature 98.0 F Pulse Rate 74 78 Respiratory Rate Blood Pressure Blood Pressure [Left] O2 Sat by Pulse 97 98 Oximetry O2 Sat by Pulse Oximetry [ Bilateral Throughout] 01/23/22 01/23/22 01/23/22 07:08 07:13 07:16 Temperature 98.4 F Pulse Rate 83 82 84 Respiratory 18 Rate Blood Pressure 126/64 Blood Pressure 126/64 [Left] O2 Sat by Pulse 96 99 94 Oximetry O2 Sat by Pulse Oximetry [ Bilateral Throughout] 01/23/22 01/23/22 01/23/22 07:22 07:27 07:28 Temperature Pulse Rate 78 84 76 Respiratory Rate Blood Pressure 134/66 Blood Pressure [Left] O2 Sat by Pulse 99 98 Oximetry O2 Sat by Pulse 99 Oximetry [ Bilateral Throughout] 01/23/22 01/23/22 01/23/22 07:32 07:37 07:42 Temperature Pulse Rate 85 79 81 Respiratory Rate Blood Pressure 139/70 Blood Pressure [Left] O2 Sat by Pulse 97 99 99 Oximetry O2 Sat by Pulse Oximetry [ Bilateral Throughout] 01/23/22 01/23/22 01/23/22 07:47 07:52 07:53 Temperature Pulse Rate 82 68 68 Respiratory Rate Blood Pressure Blood Pressure [Left] O2 Sat by Pulse 99 87 86 Oximetry O2 Sat by Pulse Oximetry [ Bilateral Throughout] 01/23/22 01/23/22 01/23/22 07:58 10:31 10:33 Temperature Pulse Rate 76 81 80 Respiratory Rate Blood Pressure 126/61 Blood Pressure [Left] O2 Sat by Pulse 93 98 Oximetry O2 Sat by Pulse Oximetry [ Bilateral Throughout] 01/23/22 01/23/22 01/23/22 10:36 10:39 10:41 Temperature Pulse Rate 87 28 L Respiratory Rate Blood Pressure Blood Pressure [Left] O2 Sat by Pulse 98 83 L 83 L Oximetry O2 Sat by Pulse Oximetry [ Bilateral Throughout] 01/23/22 01/23/22 01/23/22 10:46 10:48 10:51 Temperature Pulse Rate 82 88 Respiratory 18 Rate Blood Pressure Blood Pressure [Left] O2 Sat by Pulse 98 96 Oximetry O2 Sat by Pulse Oximetry [ Bilateral Throughout] 01/23/22 01/23/22 01/23/22 10:56 11:01 11:03 Temperature Pulse Rate 82 84 77 Respiratory Rate Blood Pressure 138/66 Blood Pressure [Left] O2 Sat by Pulse 96 97 Oximetry O2 Sat by Pulse Oximetry [ Bilateral Throughout] 01/23/22 01/23/22 01/23/22 11:06 11:11 11:16 Temperature Pulse Rate 83 84 85 Respiratory Rate Blood Pressure Blood Pressure [Left] O2 Sat by Pulse 95 95 95 Oximetry O2 Sat by Pulse Oximetry [ Bilateral Throughout] 01/23/22 01/23/22 01/23/22 11:21 11:26 11:31 Temperature Pulse Rate 78 88 74 Respiratory Rate Blood Pressure Blood Pressure [Left] O2 Sat by Pulse 94 97 96 Oximetry O2 Sat by Pulse Oximetry [ Bilateral Throughout] 01/23/22 01/23/22 01/23/22 11:34 11:36 11:41 Temperature Pulse Rate 78 89 78 Respiratory Rate Blood Pressure 139/65 Blood Pressure [Left] O2 Sat by Pulse 97 95 Oximetry O2 Sat by Pulse Oximetry [ Bilateral Throughout] 01/23/22 01/23/22 01/23/22 11:46 11:48 11:51 Temperature 98.5 F Pulse Rate 83 78 77 Respiratory 16 Rate Blood Pressure Blood Pressure 139/64 [Left] O2 Sat by Pulse 96 97 94 Oximetry O2 Sat by Pulse Oximetry [ Bilateral Throughout] 01/23/22 01/23/22 01/23/22 11:56 12:01 12:04 Temperature Pulse Rate 76 75 73 Respiratory Rate Blood Pressure 127/60 Blood Pressure [Left] O2 Sat by Pulse 96 96 Oximetry O2 Sat by Pulse Oximetry [ Bilateral Throughout] 01/23/22 01/23/22 01/23/22 12:06 12:11 12:16 Temperature Pulse Rate 74 73 79 Respiratory Rate Blood Pressure Blood Pressure [Left] O2 Sat by Pulse 96 96 98 Oximetry O2 Sat by Pulse Oximetry [ Bilateral Throughout] 01/23/22 01/23/22 01/23/22 12:21 12:26 12:31 Temperature Pulse Rate 78 88 82 Respiratory Rate Blood Pressure Blood Pressure [Left] O2 Sat by Pulse 98 96 95 Oximetry O2 Sat by Pulse Oximetry [ Bilateral Throughout] 01/23/22 01/23/22 01/23/22 12:34 12:36 12:41 Temperature Pulse Rate 77 75 83 Respiratory Rate Blood Pressure 140/71 Blood Pressure [Left] O2 Sat by Pulse 97 97 Oximetry O2 Sat by Pulse Oximetry [ Bilateral Throughout] 01/23/22 01/23/22 01/23/22 12:46 12:51 12:56 Temperature Pulse Rate 81 85 79 Respiratory Rate Blood Pressure Blood Pressure [Left] O2 Sat by Pulse 99 99 99 Oximetry O2 Sat by Pulse Oximetry [ Bilateral Throughout] 01/23/22 01/23/22 01/23/22 13:01 13:03 13:06 Temperature Pulse Rate 77 72 83 Respiratory Rate Blood Pressure 142/70 Blood Pressure [Left] O2 Sat by Pulse 99 97 Oximetry O2 Sat by Pulse Oximetry [ Bilateral Throughout] 01/23/22 01/23/22 01/23/22 13:11 13:16 13:21 Temperature Pulse Rate 81 80 83 Respiratory Rate Blood Pressure Blood Pressure [Left] O2 Sat by Pulse 96 98 97 Oximetry O2 Sat by Pulse Oximetry [ Bilateral Throughout] 01/23/22 01/23/22 01/23/22 13:28 13:29 13:34 Temperature Pulse Rate 75 75 75 Respiratory Rate Blood Pressure Blood Pressure [Left] O2 Sat by Pulse 81 L 99 99 Oximetry O2 Sat by Pulse Oximetry [ Bilateral Throughout] 01/23/22 01/23/22 01/23/22 13:39 13:44 13:55 Temperature Pulse Rate 73 74 85 Respiratory Rate Blood Pressure Blood Pressure [Left] O2 Sat by Pulse 98 97 99 Oximetry O2 Sat by Pulse Oximetry [ Bilateral Throughout] 01/23/22 01/23/22 01/23/22 14:00 14:03 14:05 Temperature Pulse Rate 74 76 83 Respiratory Rate Blood Pressure 136/78 138/68 Blood Pressure [Left] O2 Sat by Pulse 99 99 Oximetry O2 Sat by Pulse Oximetry [ Bilateral Throughout] 01/23/22 01/23/22 01/23/22 14:06 14:09 14:10 Temperature Pulse Rate 82 82 86 Respiratory Rate Blood Pressure 140/68 151/69 147/69 Blood Pressure [Left] O2 Sat by Pulse 99 Oximetry O2 Sat by Pulse Oximetry [ Bilateral Throughout] 01/23/22 01/23/22 01/23/22 14:11 14:13 14:15 Temperature Pulse Rate 88 81 83 Respiratory Rate Blood Pressure 146/67 151/67 133/61 Blood Pressure [Left] O2 Sat by Pulse 100 Oximetry O2 Sat by Pulse Oximetry [ Bilateral Throughout] 01/23/22 01/23/22 01/23/22 14:16 14:17 14:18 Temperature Pulse Rate 90 92 H 85 Respiratory Rate Blood Pressure 132/58 129/60 133/62 Blood Pressure [Left] O2 Sat by Pulse Oximetry O2 Sat by Pulse Oximetry [ Bilateral Throughout] 01/23/22 01/23/22 01/23/22 14:19 14:20 14:21 Temperature Pulse Rate 94 H 85 82 Respiratory Rate Blood Pressure 131/63 133/60 134/63 Blood Pressure [Left] O2 Sat by Pulse 100 Oximetry O2 Sat by Pulse Oximetry [ Bilateral Throughout] - Exam Cardiovascular: Regular rate Lungs: Normal air movement Abdomen: Present: normal appearance, soft Vulva: both: normal Uterus: Present: normal, fundal height above umbilicus FHR: category 1 Uterine Contraction Monitor Mode: External Cervical Dilatation: 4 Cervical Effacement Percentage: 85 station: -1 Uterine Contraction Pattern: Regular Uterine Tone Measurement Phase: Contraction Uterine Contraction Intensity: Moderate Extremities: normal Deep Tendon Reflex Grade: Normal +2 - Labs Labs: Laboratory Results - last 24 hr 01/22/22 01/22/22 01/23/22 17:56 18:40 10:30 WBC 9.7 RBC 4.39 Hgb 13.4 Hct 39.2 MCV 89 MCH 30 MCHC 34 RDW 14.8 Plt Count 237 SARS-CoV-2 (PCR) Negative Blood Type A POSITIVE Antibody Screen Negative
[2022-01-23] MEDS ORDERED: ePHEDrine SULFATE 50 MG/1 ML INJ IV PRN (14:30)
[2022-01-23] MEDS ORDERED: NALOXONE 0.4 MG/1 ML INJ IV PRN (15:00)
--- NOTE | 2022-01-23 17:16 | Progress Note ---
Assessment and Plan Attempted to AROM with amnihook, no fluid. ISE placed and functioning well. IUPC placed without resistance. clear fluid noted in IUPC. SVE 7/100/-1. turned to RLP with left leg placed in stirrup. Encouraged to rest and notify rn if she feels any rectal pressure. - Patient Problems (1) BMI 37.0-37.9, adult Current Visit: Yes Status: Acute (2) Oligohydramnios in siddiqi in third trimester Current Visit: Yes Status: Acute (3) Post term at 41 weeks gestation Current Visit: Yes Status: Acute Subjective - Subjective Date of service: 01/23/22 Principal diagnosis: IUP @ 41+1; IOL for oligo and postdates Patient reports: new complaints (pressure during ctx) Objective - Vital Signs Vital Signs: Vital Signs - 12hr 01/23/22 01/23/22 01/23/22 05:14 05:19 05:21 Temperature Pulse Rate 79 79 59 L Respiratory Rate Blood Pressure Blood Pressure [Left] O2 Sat by Pulse 98 97 82 L Oximetry O2 Sat by Pulse Oximetry [ Bilateral Throughout] 01/23/22 01/23/22 01/23/22 05:27 05:28 05:32 Temperature Pulse Rate 84 78 79 Respiratory Rate Blood Pressure 134/61 Blood Pressure [Left] O2 Sat by Pulse 99 98 Oximetry O2 Sat by Pulse Oximetry [ Bilateral Throughout] 01/23/22 01/23/22 01/23/22 05:37 05:42 05:43 Temperature Pulse Rate 74 77 81 Respiratory Rate Blood Pressure 143/61 Blood Pressure [Left] O2 Sat by Pulse 99 99 Oximetry O2 Sat by Pulse Oximetry [ Bilateral Throughout] 01/23/22 01/23/22 01/23/22 05:47 05:52 05:57 Temperature Pulse Rate 82 79 75 Respiratory Rate Blood Pressure 111/54 Blood Pressure [Left] O2 Sat by Pulse 99 98 99 Oximetry O2 Sat by Pulse Oximetry [ Bilateral Throughout] 01/23/22 01/23/22 01/23/22 06:02 06:07 06:12 Temperature Pulse Rate 77 81 75 Respiratory Rate Blood Pressure 114/55 Blood Pressure [Left] O2 Sat by Pulse 98 98 96 Oximetry O2 Sat by Pulse Oximetry [ Bilateral Throughout] 01/23/22 01/23/22 01/23/22 06:17 06:22 06:27 Temperature Pulse Rate 86 79 75 Respiratory Rate Blood Pressure 117/54 Blood Pressure [Left] O2 Sat by Pulse 99 97 97 Oximetry O2 Sat by Pulse Oximetry [ Bilateral Throughout] 01/23/22 01/23/22 01/23/22 06:32 06:34 06:37 Temperature Pulse Rate 75 74 89 Respiratory Rate Blood Pressure Blood Pressure [Left] O2 Sat by Pulse 98 93 98 Oximetry O2 Sat by Pulse Oximetry [ Bilateral Throughout] 01/23/22 01/23/22 01/23/22 06:42 06:47 06:51 Temperature Pulse Rate 84 83 Respiratory Rate Blood Pressure 112/59 Blood Pressure [Left] O2 Sat by Pulse 99 99 82 L Oximetry O2 Sat by Pulse Oximetry [ Bilateral Throughout] 01/23/22 01/23/22 01/23/22 06:52 06:56 06:57 Temperature Pulse Rate 62 78 Respiratory Rate Blood Pressure 147/75 Blood Pressure [Left] O2 Sat by Pulse 86 90 Oximetry O2 Sat by Pulse Oximetry [ Bilateral Throughout] 01/23/22 01/23/22 01/23/22 06:58 07:03 07:07 Temperature 98.0 F Pulse Rate 74 78 Respiratory Rate Blood Pressure Blood Pressure [Left] O2 Sat by Pulse 97 98 Oximetry O2 Sat by Pulse Oximetry [ Bilateral Throughout] 01/23/22 01/23/22 01/23/22 07:08 07:13 07:16 Temperature 98.4 F Pulse Rate 83 82 84 Respiratory 18 Rate Blood Pressure 126/64 Blood Pressure 126/64 [Left] O2 Sat by Pulse 96 99 94 Oximetry O2 Sat by Pulse Oximetry [ Bilateral Throughout] 01/23/22 01/23/22 01/23/22 07:22 07:27 07:28 Temperature Pulse Rate 78 84 76 Respiratory Rate Blood Pressure 134/66 Blood Pressure [Left] O2 Sat by Pulse 99 98 Oximetry O2 Sat by Pulse 99 Oximetry [ Bilateral Throughout] 01/23/22 01/23/22 01/23/22 07:32 07:37 07:42 Temperature Pulse Rate 85 79 81 Respiratory Rate Blood Pressure 139/70 Blood Pressure [Left] O2 Sat by Pulse 97 99 99 Oximetry O2 Sat by Pulse Oximetry [ Bilateral Throughout] 01/23/22 01/23/22 01/23/22 07:47 07:52 07:53 Temperature Pulse Rate 82 68 68 Respiratory Rate Blood Pressure Blood Pressure [Left] O2 Sat by Pulse 99 87 86 Oximetry O2 Sat by Pulse Oximetry [ Bilateral Throughout] 01/23/22 01/23/22 01/23/22 07:58 10:31 10:33 Temperature Pulse Rate 76 81 80 Respiratory Rate Blood Pressure 126/61 Blood Pressure [Left] O2 Sat by Pulse 93 98 Oximetry O2 Sat by Pulse Oximetry [ Bilateral Throughout] 01/23/22 01/23/22 01/23/22 10:36 10:39 10:41 Temperature Pulse Rate 87 28 L Respiratory Rate Blood Pressure Blood Pressure [Left] O2 Sat by Pulse 98 83 L 83 L Oximetry O2 Sat by Pulse Oximetry [ Bilateral Throughout] 01/23/22 01/23/22 01/23/22 10:46 10:48 10:51 Temperature Pulse Rate 82 88 Respiratory 18 Rate Blood Pressure Blood Pressure [Left] O2 Sat by Pulse 98 96 Oximetry O2 Sat by Pulse Oximetry [ Bilateral Throughout] 01/23/22 01/23/22 01/23/22 10:56 11:01 11:03 Temperature Pulse Rate 82 84 77 Respiratory Rate Blood Pressure 138/66 Blood Pressure [Left] O2 Sat by Pulse 96 97 Oximetry O2 Sat by Pulse Oximetry [ Bilateral Throughout] 01/23/22 01/23/22 01/23/22 11:06 11:11 11:16 Temperature Pulse Rate 83 84 85 Respiratory Rate Blood Pressure Blood Pressure [Left] O2 Sat by Pulse 95 95 95 Oximetry O2 Sat by Pulse Oximetry [ Bilateral Throughout] 01/23/22 01/23/22 01/23/22 11:21 11:26 11:31 Temperature Pulse Rate 78 88 74 Respiratory Rate Blood Pressure Blood Pressure [Left] O2 Sat by Pulse 94 97 96 Oximetry O2 Sat by Pulse Oximetry [ Bilateral Throughout] 01/23/22 01/23/22 01/23/22 11:34 11:36 11:41 Temperature Pulse Rate 78 89 78 Respiratory Rate Blood Pressure 139/65 Blood Pressure [Left] O2 Sat by Pulse 97 95 Oximetry O2 Sat by Pulse Oximetry [ Bilateral Throughout] 01/23/22 01/23/22 01/23/22 11:46 11:48 11:51 Temperature 98.5 F Pulse Rate 83 78 77 Respiratory 16 Rate Blood Pressure Blood Pressure 139/64 [Left] O2 Sat by Pulse 96 97 94 Oximetry O2 Sat by Pulse Oximetry [ Bilateral Throughout] 01/23/22 01/23/22 01/23/22 11:56 12:01 12:04 Temperature Pulse Rate 76 75 73 Respiratory Rate Blood Pressure 127/60 Blood Pressure [Left] O2 Sat by Pulse 96 96 Oximetry O2 Sat by Pulse Oximetry [ Bilateral Throughout] 01/23/22 01/23/22 01/23/22 12:06 12:11 12:16 Temperature Pulse Rate 74 73 79 Respiratory Rate Blood Pressure Blood Pressure [Left] O2 Sat by Pulse 96 96 98 Oximetry O2 Sat by Pulse Oximetry [ Bilateral Throughout] 01/23/22 01/23/22 01/23/22 12:21 12:26 12:31 Temperature Pulse Rate 78 88 82 Respiratory Rate Blood Pressure Blood Pressure [Left] O2 Sat by Pulse 98 96 95 Oximetry O2 Sat by Pulse Oximetry [ Bilateral Throughout] 01/23/22 01/23/22 01/23/22 12:34 12:36 12:41 Temperature Pulse Rate 77 75 83 Respiratory Rate Blood Pressure 140/71 Blood Pressure [Left] O2 Sat by Pulse 97 97 Oximetry O2 Sat by Pulse Oximetry [ Bilateral Throughout] 01/23/22 01/23/22 01/23/22 12:46 12:51 12:56 Temperature Pulse Rate 81 85 79 Respiratory Rate Blood Pressure Blood Pressure [Left] O2 Sat by Pulse 99 99 99 Oximetry O2 Sat by Pulse Oximetry [ Bilateral Throughout] 01/23/22 01/23/22 01/23/22 13:01 13:03 13:06 Temperature Pulse Rate 77 72 83 Respiratory Rate Blood Pressure 142/70 Blood Pressure [Left] O2 Sat by Pulse 99 97 Oximetry O2 Sat by Pulse Oximetry [ Bilateral Throughout] 01/23/22 01/23/22 01/23/22 13:11 13:16 13:21 Temperature Pulse Rate 81 80 83 Respiratory Rate Blood Pressure Blood Pressure [Left] O2 Sat by Pulse 96 98 97 Oximetry O2 Sat by Pulse Oximetry [ Bilateral Throughout] 01/23/22 01/23/22 01/23/22 13:28 13:29 13:34 Temperature Pulse Rate 75 75 75 Respiratory Rate Blood Pressure Blood Pressure [Left] O2 Sat by Pulse 81 L 99 99 Oximetry O2 Sat by Pulse Oximetry [ Bilateral Throughout] 01/23/22 01/23/22 01/23/22 13:39 13:44 13:55 Temperature Pulse Rate 73 74 85 Respiratory Rate Blood Pressure Blood Pressure [Left] O2 Sat by Pulse 98 97 99 Oximetry O2 Sat by Pulse Oximetry [ Bilateral Throughout] 01/23/22 01/23/22 01/23/22 14:00 14:03 14:05 Temperature Pulse Rate 74 76 83 Respiratory Rate Blood Pressure 136/78 138/68 Blood Pressure [Left] O2 Sat by Pulse 99 99 Oximetry O2 Sat by Pulse Oximetry [ Bilateral Throughout] 01/23/22 01/23/22 01/23/22 14:06 14:09 14:10 Temperature Pulse Rate 82 82 86 Respiratory Rate Blood Pressure 140/68 151/69 147/69 Blood Pressure [Left] O2 Sat by Pulse 99 Oximetry O2 Sat by Pulse Oximetry [ Bilateral Throughout] 01/23/22 01/23/22 01/23/22 14:11 14:13 14:15 Temperature Pulse Rate 88 81 83 Respiratory Rate Blood Pressure 146/67 151/67 133/61 Blood Pressure [Left] O2 Sat by Pulse 100 Oximetry O2 Sat by Pulse Oximetry [ Bilateral Throughout] 01/23/22 01/23/22 01/23/22 14:16 14:17 14:18 Temperature Pulse Rate 90 92 H 85 Respiratory Rate Blood Pressure 132/58 129/60 133/62 Blood Pressure [Left] O2 Sat by Pulse Oximetry O2 Sat by Pulse Oximetry [ Bilateral Throughout] 01/23/22 01/23/22 01/23/22 14:19 14:20 14:21 Temperature Pulse Rate 94 H 85 82 Respiratory Rate Blood Pressure 131/63 133/60 134/63 Blood Pressure [Left] O2 Sat by Pulse 100 Oximetry O2 Sat by Pulse Oximetry [ Bilateral Throughout] 01/23/22 01/23/22 01/23/22 14:22 14:23 14:25 Temperature Pulse Rate 78 84 84 Respiratory Rate Blood Pressure 132/61 130/60 Blood Pressure [Left] O2 Sat by Pulse 100 Oximetry O2 Sat by Pulse Oximetry [ Bilateral Throughout] 01/23/22 01/23/22 01/23/22 14:30 14:35 14:40 Temperature Pulse Rate 96 H 89 89 Respiratory Rate Blood Pressure 124/60 Blood Pressure [Left] O2 Sat by Pulse 100 100 100 Oximetry O2 Sat by Pulse Oximetry [ Bilateral Throughout] 01/23/22 01/23/22 01/23/22 14:45 14:50 14:55 Temperature Pulse Rate 81 81 99 H Respiratory Rate Blood Pressure 108/55 Blood Pressure [Left] O2 Sat by Pulse 100 100 100 Oximetry O2 Sat by Pulse Oximetry [ Bilateral Throughout] 01/23/22 01/23/22 01/23/22 15:00 15:05 15:10 Temperature Pulse Rate 86 90 92 H Respiratory Rate Blood Pressure Blood Pressure [Left] O2 Sat by Pulse 100 98 99 Oximetry O2 Sat by Pulse Oximetry [ Bilateral Throughout] 01/23/22 01/23/22 01/23/22 15:15 15:20 15:26 Temperature Pulse Rate 90 82 93 H Respiratory Rate Blood Pressure 98/53 Blood Pressure [Left] O2 Sat by Pulse 99 99 99 Oximetry O2 Sat by Pulse Oximetry [ Bilateral Throughout] 01/23/22 01/23/22 01/23/22 15:30 15:31 15:36 Temperature Pulse Rate 90 87 92 H Respiratory Rate Blood Pressure 109/56 Blood Pressure [Left] O2 Sat by Pulse 99 100 Oximetry O2 Sat by Pulse Oximetry [ Bilateral Throughout] 01/23/22 01/23/22 01/23/22 15:40 15:41 15:46 Temperature Pulse Rate 80 87 80 Respiratory Rate Blood Pressure 133/62 Blood Pressure [Left] O2 Sat by Pulse 100 100 Oximetry O2 Sat by Pulse Oximetry [ Bilateral Throughout] 01/23/22 01/23/22 01/23/22 15:51 15:55 15:56 Temperature Pulse Rate 84 80 82 Respiratory Rate Blood Pressure 130/62 Blood Pressure [Left] O2 Sat by Pulse 100 100 Oximetry O2 Sat by Pulse Oximetry [ Bilateral Throughout] 01/23/22 01/23/22 01/23/22 16:01 16:06 16:10 Temperature Pulse Rate 85 78 75 Respiratory Rate Blood Pressure 126/60 Blood Pressure [Left] O2 Sat by Pulse 100 99 Oximetry O2 Sat by Pulse Oximetry [ Bilateral Throughout] 01/23/22 01/23/22 01/23/22 16:11 16:16 16:21 Temperature Pulse Rate 72 84 81 Respiratory Rate Blood Pressure Blood Pressure [Left] O2 Sat by Pulse 99 99 99 Oximetry O2 Sat by Pulse Oximetry [ Bilateral Throughout] 01/23/22 01/23/22 01/23/22 16:25 16:26 16:31 Temperature Pulse Rate 75 79 76 Respiratory Rate Blood Pressure 123/58 Blood Pressure [Left] O2 Sat by Pulse 100 99 Oximetry O2 Sat by Pulse Oximetry [ Bilateral Throughout] 01/23/22 01/23/22 01/23/22 16:36 16:40 16:41 Temperature Pulse Rate 77 74 86 Respiratory Rate Blood Pressure 113/58 Blood Pressure [Left] O2 Sat by Pulse 99 99 Oximetry O2 Sat by Pulse Oximetry [ Bilateral Throughout] 01/23/22 01/23/22 01/23/22 16:46 16:51 16:56 Temperature Pulse Rate 83 82 78 Respiratory Rate Blood Pressure 123/60 Blood Pressure [Left] O2 Sat by Pulse 99 98 99 Oximetry O2 Sat by Pulse Oximetry [ Bilateral Throughout] 01/23/22 01/23/22 01/23/22 17:01 17:06 17:10 Temperature Pulse Rate 77 80 81 Respiratory Rate Blood Pressure 126/60 Blood Pressure [Left] O2 Sat by Pulse 98 100 Oximetry O2 Sat by Pulse Oximetry [ Bilateral Throughout] - Exam Cardiovascular: Regular rate Lungs: Normal air movement Abdomen: Present: normal appearance, soft Vulva: both: normal Uterus: Present: normal FHR: category 1 Uterine Contraction Monitor Mode: Internal Cervical Dilatation: 7 (ISE placed, no fluid noted. IUPC placed - clear fluid noted in IUPC tube) Cervical Effacement Percentage: 100 station: -1 Uterine Contraction Frequency (min): 4-8 Uterine Contraction Duration: 50-90 Uterine Contraction Pattern: Regular Uterine Tone Measurement Phase: Contraction Uterine Contraction Intensity: Moderate Extremities: normal - Labs Labs: Laboratory Results - last 24 hr 01/22/22 01/22/22 01/23/22 17:56 18:40 10:30 WBC 9.7 RBC 4.39 Hgb 13.4 Hct 39.2 MCV 89 MCH 30 MCHC 34 RDW 14.8 Plt Count 237 SARS-CoV-2 (PCR) Negative Blood Type A POSITIVE Antibody Screen Negative
--- NOTE | 2022-01-23 18:38 | Anesthesia Consultation ---
Anesthesia Consult and Med Hx Date of service: 01/23/22 - Airway Anesthetic Teeth Evaluation: Good ROM Head & Neck: Adequate Mental/Hyoid Distance: Adequate Mallampati Class: Class II Intubation Access Assessment: Probably Good - Pulmonary Exam CTA: Yes - Cardiac Exam Cardiac Exam: RRR - Pre-Operative Health Status ASA Pre-Surgery Classification: ASA2 Proposed Anesthetic Plan: Epidural - Pulmonary Hx Smoking: No Hx Asthma: No Hx Respiratory Symptoms: No SOB: No COPD: No Home Oxygen Therapy: No Hx Pneumonia: No Hx Sleep Apnea: No - Cardiovascular System Hx Hypertension: No Hx Coronary Artery Disease: No Hx Heart Attack/AMI: No Hx Angina: No Hx Percutaneous Transluminal Coronary Angioplasty (PTCA): No Hx Cardia Arrhythmia: No Hx Pacemaker: No Hx Internal Defibrillator: No Hx Valvular Heart Disease: No Hx Heart Murmur: No Hx Peripheral Vascular Disease: No - Central Nervous System Hx Neuromuscular Disorder: No Hx Seizures: No CVA: No Hx Back Pain: No Hx Psychiatric Problems: No - Gastrointestinal Hx Ulcer: No Hx Gastroesophageal Reflux Disease: No - Endocrine Hx Renal Disease: No Hx End Stage Renal Disease: No Hx Cirrhosis: No Hx Liver Disease: No Hx Insulin Dependent Diabetes: No Hx Non-Insulin Dependent Diabetes: No Hx Thyroid Disease: No Hx Hypothyroidism: No Hx Hyperthyroidism: No - Hematic Hx Anemia: No Hx Sickle Cell Disease: No - Other Systems Hx Alcohol Use: No Hx Substance Use: No Hx Cancer: No Hx Obesity: No
--- NOTE | 2022-01-23 18:39 | Anesthesia Day of Surgery ---
Anesthesia Day of Surgery - Day of Surgery Patient Examined: Yes Patient H&P Reviewed: Yes Patient is NPO: Yes Beta Blockers: No Cardiac Clearance: No Pulmonary Clearance: No Felix's Test: N/A
--- NOTE | 2022-01-23 18:40 | Progress Note ---
Labor Epidural - Labor Epidural Start Time: 10:05 Stop Time: 10:20 Performed by:: ANABELLA LUCIANO Procedure: Patient is requesting epidural for labor pain. H&P and labs reviewed. Procedure explained, questions answered, consent obtained. Patient placed in sitting position with monitors applied. Timeout performed immediately before start of procedure. Prep/drape in usual sterile fashion. Skin localized 3 mL 1% lidocaine at L[3]-L[4] x 1 attempt. 17-gauge Touhy epidural needle advanced to LYNN with saline at [7] cm. No blood/CSF noted via epidural needle. Epidural catheter advanced to [12] cm. Negative aspiration for blood and CSF via catheter, negative response to test dose 3 ml 1.5% lidocaine w/ Epi. Sterile dressing applied followed by tape reinforcement. Patient tolerated procedure well. No immediate complications noted.
--- NOTE | 2022-01-23 19:30 | Progress Note ---
Assessment and Plan A: 31 y.o. @ 41.1 wks, active labor @ /-1. - Patient Problems (1) Oligohydramnios in siddiqi in third trimester Current Visit: Yes Status: Acute (2) Post term at 41 weeks gestation Current Visit: Yes Status: Acute Plan to address problem: Continue with Pitocin per protocol. Anticipate . Subjective - Subjective Date of service: 01/23/22 Principal diagnosis: IUP @ 41+1; IOL for oligo and postdates Patient reports: new complaints (Constant vaginal pressure) Objective - Vital Signs Vital Signs: Vital Signs - 12hr 01/23/22 01/23/22 01/23/22 07:28 07:32 07:37 Temperature Pulse Rate 76 85 79 Respiratory Rate Blood Pressure 134/66 Blood Pressure [Left] O2 Sat by Pulse 97 99 Oximetry O2 Sat by Pulse 99 Oximetry [ Bilateral Throughout] 01/23/22 01/23/22 01/23/22 07:42 07:47 07:52 Temperature Pulse Rate 81 82 68 Respiratory Rate Blood Pressure 139/70 Blood Pressure [Left] O2 Sat by Pulse 99 99 87 Oximetry O2 Sat by Pulse Oximetry [ Bilateral Throughout] 01/23/22 01/23/22 01/23/22 07:53 07:58 10:31 Temperature Pulse Rate 68 76 81 Respiratory Rate Blood Pressure Blood Pressure [Left] O2 Sat by Pulse 86 93 98 Oximetry O2 Sat by Pulse Oximetry [ Bilateral Throughout] 01/23/22 01/23/22 01/23/22 10:33 10:36 10:39 Temperature Pulse Rate 80 87 28 L Respiratory Rate Blood Pressure 126/61 Blood Pressure [Left] O2 Sat by Pulse 98 83 L Oximetry O2 Sat by Pulse Oximetry [ Bilateral Throughout] 01/23/22 01/23/22 01/23/22 10:41 10:46 10:48 Temperature Pulse Rate 82 Respiratory 18 Rate Blood Pressure Blood Pressure [Left] O2 Sat by Pulse 83 L 98 Oximetry O2 Sat by Pulse Oximetry [ Bilateral Throughout] 01/23/22 01/23/22 01/23/22 10:51 10:56 11:01 Temperature Pulse Rate 88 82 84 Respiratory Rate Blood Pressure Blood Pressure [Left] O2 Sat by Pulse 96 96 97 Oximetry O2 Sat by Pulse Oximetry [ Bilateral Throughout] 01/23/22 01/23/22 01/23/22 11:03 11:06 11:11 Temperature Pulse Rate 77 83 84 Respiratory Rate Blood Pressure 138/66 Blood Pressure [Left] O2 Sat by Pulse 95 95 Oximetry O2 Sat by Pulse Oximetry [ Bilateral Throughout] 01/23/22 01/23/22 01/23/22 11:16 11:21 11:26 Temperature Pulse Rate 85 78 88 Respiratory Rate Blood Pressure Blood Pressure [Left] O2 Sat by Pulse 95 94 97 Oximetry O2 Sat by Pulse Oximetry [ Bilateral Throughout] 01/23/22 01/23/22 01/23/22 11:31 11:34 11:36 Temperature Pulse Rate 74 78 89 Respiratory Rate Blood Pressure 139/65 Blood Pressure [Left] O2 Sat by Pulse 96 97 Oximetry O2 Sat by Pulse Oximetry [ Bilateral Throughout] 01/23/22 01/23/22 01/23/22 11:41 11:46 11:48 Temperature 98.5 F Pulse Rate 78 83 78 Respiratory 16 Rate Blood Pressure Blood Pressure 139/64 [Left] O2 Sat by Pulse 95 96 97 Oximetry O2 Sat by Pulse Oximetry [ Bilateral Throughout] 01/23/22 01/23/22 01/23/22 11:51 11:56 12:01 Temperature Pulse Rate 77 76 75 Respiratory Rate Blood Pressure Blood Pressure [Left] O2 Sat by Pulse 94 96 96 Oximetry O2 Sat by Pulse Oximetry [ Bilateral Throughout] 01/23/22 01/23/22 01/23/22 12:04 12:06 12:11 Temperature Pulse Rate 73 74 73 Respiratory Rate Blood Pressure 127/60 Blood Pressure [Left] O2 Sat by Pulse 96 96 Oximetry O2 Sat by Pulse Oximetry [ Bilateral Throughout] 01/23/22 01/23/22 01/23/22 12:16 12:21 12:26 Temperature Pulse Rate 79 78 88 Respiratory Rate Blood Pressure Blood Pressure [Left] O2 Sat by Pulse 98 98 96 Oximetry O2 Sat by Pulse Oximetry [ Bilateral Throughout] 01/23/22 01/23/22 01/23/22 12:31 12:34 12:36 Temperature Pulse Rate 82 77 75 Respiratory Rate Blood Pressure 140/71 Blood Pressure [Left] O2 Sat by Pulse 95 97 Oximetry O2 Sat by Pulse Oximetry [ Bilateral Throughout] 01/23/22 01/23/22 01/23/22 12:41 12:46 12:51 Temperature Pulse Rate 83 81 85 Respiratory Rate Blood Pressure Blood Pressure [Left] O2 Sat by Pulse 97 99 99 Oximetry O2 Sat by Pulse Oximetry [ Bilateral Throughout] 01/23/22 01/23/22 01/23/22 12:56 13:01 13:03 Temperature Pulse Rate 79 77 72 Respiratory Rate Blood Pressure 142/70 Blood Pressure [Left] O2 Sat by Pulse 99 99 Oximetry O2 Sat by Pulse Oximetry [ Bilateral Throughout] 01/23/22 01/23/22 01/23/22 13:06 13:11 13:16 Temperature Pulse Rate 83 81 80 Respiratory Rate Blood Pressure Blood Pressure [Left] O2 Sat by Pulse 97 96 98 Oximetry O2 Sat by Pulse Oximetry [ Bilateral Throughout] 01/23/22 01/23/22 01/23/22 13:21 13:28 13:29 Temperature Pulse Rate 83 75 75 Respiratory Rate Blood Pressure Blood Pressure [Left] O2 Sat by Pulse 97 81 L 99 Oximetry O2 Sat by Pulse Oximetry [ Bilateral Throughout] 01/23/22 01/23/22 01/23/22 13:34 13:39 13:44 Temperature Pulse Rate 75 73 74 Respiratory Rate Blood Pressure Blood Pressure [Left] O2 Sat by Pulse 99 98 97 Oximetry O2 Sat by Pulse Oximetry [ Bilateral Throughout] 01/23/22 01/23/22 01/23/22 13:55 14:00 14:03 Temperature Pulse Rate 85 74 76 Respiratory Rate Blood Pressure 136/78 138/68 Blood Pressure [Left] O2 Sat by Pulse 99 99 Oximetry O2 Sat by Pulse Oximetry [ Bilateral Throughout] 01/23/22 01/23/22 01/23/22 14:05 14:06 14:09 Temperature Pulse Rate 83 82 82 Respiratory Rate Blood Pressure 140/68 151/69 Blood Pressure [Left] O2 Sat by Pulse 99 Oximetry O2 Sat by Pulse Oximetry [ Bilateral Throughout] 01/23/22 01/23/22 01/23/22 14:10 14:11 14:13 Temperature Pulse Rate 86 88 81 Respiratory Rate Blood Pressure 147/69 146/67 151/67 Blood Pressure [Left] O2 Sat by Pulse 99 Oximetry O2 Sat by Pulse Oximetry [ Bilateral Throughout] 01/23/22 01/23/22 01/23/22 14:15 14:16 14:17 Temperature Pulse Rate 83 90 92 H Respiratory Rate Blood Pressure 133/61 132/58 129/60 Blood Pressure [Left] O2 Sat by Pulse 100 Oximetry O2 Sat by Pulse Oximetry [ Bilateral Throughout] 01/23/22 01/23/22 01/23/22 14:18 14:19 14:20 Temperature Pulse Rate 85 94 H 85 Respiratory Rate Blood Pressure 133/62 131/63 133/60 Blood Pressure [Left] O2 Sat by Pulse 100 Oximetry O2 Sat by Pulse Oximetry [ Bilateral Throughout] 01/23/22 01/23/22 01/23/22 14:21 14:22 14:23 Temperature Pulse Rate 82 78 84 Respiratory Rate Blood Pressure 134/63 132/61 130/60 Blood Pressure [Left] O2 Sat by Pulse Oximetry O2 Sat by Pulse Oximetry [ Bilateral Throughout] 01/23/22 01/23/22 01/23/22 14:25 14:30 14:35 Temperature Pulse Rate 84 96 H 89 Respiratory Rate Blood Pressure Blood Pressure [Left] O2 Sat by Pulse 100 100 100 Oximetry O2 Sat by Pulse Oximetry [ Bilateral Throughout] 01/23/22 01/23/22 01/23/22 14:40 14:45 14:50 Temperature Pulse Rate 89 81 81 Respiratory Rate Blood Pressure 124/60 Blood Pressure [Left] O2 Sat by Pulse 100 100 100 Oximetry O2 Sat by Pulse Oximetry [ Bilateral Throughout] 01/23/22 01/23/22 01/23/22 14:55 15:00 15:05 Temperature Pulse Rate 99 H 86 90 Respiratory Rate Blood Pressure 108/55 Blood Pressure [Left] O2 Sat by Pulse 100 100 98 Oximetry O2 Sat by Pulse Oximetry [ Bilateral Throughout] 01/23/22 01/23/22 01/23/22 15:10 15:15 15:20 Temperature Pulse Rate 92 H 90 82 Respiratory Rate Blood Pressure Blood Pressure [Left] O2 Sat by Pulse 99 99 99 Oximetry O2 Sat by Pulse Oximetry [ Bilateral Throughout] 01/23/22 01/23/22 01/23/22 15:26 15:30 15:31 Temperature Pulse Rate 93 H 90 87 Respiratory Rate Blood Pressure 98/53 109/56 Blood Pressure [Left] O2 Sat by Pulse 99 99 Oximetry O2 Sat by Pulse Oximetry [ Bilateral Throughout] 01/23/22 01/23/22 01/23/22 15:36 15:40 15:41 Temperature Pulse Rate 92 H 80 87 Respiratory Rate Blood Pressure 133/62 Blood Pressure [Left] O2 Sat by Pulse 100 100 Oximetry O2 Sat by Pulse Oximetry [ Bilateral Throughout] 01/23/22 01/23/22 01/23/22 15:46 15:51 15:55 Temperature Pulse Rate 80 84 80 Respiratory Rate Blood Pressure 130/62 Blood Pressure [Left] O2 Sat by Pulse 100 100 Oximetry O2 Sat by Pulse Oximetry [ Bilateral Throughout] 01/23/22 01/23/22 01/23/22 15:56 16:01 16:06 Temperature Pulse Rate 82 85 78 Respiratory Rate Blood Pressure Blood Pressure [Left] O2 Sat by Pulse 100 100 99 Oximetry O2 Sat by Pulse Oximetry [ Bilateral Throughout] 01/23/22 01/23/22 01/23/22 16:10 16:11 16:16 Temperature Pulse Rate 75 72 84 Respiratory Rate Blood Pressure 126/60 Blood Pressure [Left] O2 Sat by Pulse 99 99 Oximetry O2 Sat by Pulse Oximetry [ Bilateral Throughout] 01/23/22 01/23/22 01/23/22 16:21 16:25 16:26 Temperature Pulse Rate 81 75 79 Respiratory Rate Blood Pressure 123/58 Blood Pressure [Left] O2 Sat by Pulse 99 100 Oximetry O2 Sat by Pulse Oximetry [ Bilateral Throughout] 01/23/22 01/23/22 01/23/22 16:31 16:36 16:40 Temperature Pulse Rate 76 77 74 Respiratory Rate Blood Pressure 113/58 Blood Pressure [Left] O2 Sat by Pulse 99 99 Oximetry O2 Sat by Pulse Oximetry [ Bilateral Throughout] 01/23/22 01/23/22 01/23/22 16:41 16:46 16:51 Temperature Pulse Rate 86 83 82 Respiratory Rate Blood Pressure Blood Pressure [Left] O2 Sat by Pulse 99 99 98 Oximetry O2 Sat by Pulse Oximetry [ Bilateral Throughout] 01/23/22 01/23/22 01/23/22 16:56 17:01 17:06 Temperature Pulse Rate 78 77 80 Respiratory Rate Blood Pressure 123/60 Blood Pressure [Left] O2 Sat by Pulse 99 98 100 Oximetry O2 Sat by Pulse Oximetry [ Bilateral Throughout] 01/23/22 01/23/22 01/23/22 17:10 17:11 17:14 Temperature 98.7 F Pulse Rate 81 81 81 Respiratory 18 Rate Blood Pressure 126/60 Blood Pressure 126/60 [Left] O2 Sat by Pulse 100 100 Oximetry O2 Sat by Pulse Oximetry [ Bilateral Throughout] 01/23/22 01/23/22 01/23/22 17:16 17:21 17:25 Temperature Pulse Rate 94 H 83 83 Respiratory Rate Blood Pressure 128/58 Blood Pressure [Left] O2 Sat by Pulse 100 100 Oximetry O2 Sat by Pulse Oximetry [ Bilateral Throughout] 01/23/22 01/23/22 01/23/22 17:26 17:31 17:36 Temperature Pulse Rate 88 77 80 Respiratory Rate Blood Pressure Blood Pressure [Left] O2 Sat by Pulse 100 100 100 Oximetry O2 Sat by Pulse Oximetry [ Bilateral Throughout] 01/23/22 01/23/22 01/23/22 17:40 17:41 17:46 Temperature Pulse Rate 82 81 79 Respiratory Rate Blood Pressure 131/61 Blood Pressure [Left] O2 Sat by Pulse 100 99 Oximetry O2 Sat by Pulse Oximetry [ Bilateral Throughout] 01/23/22 01/23/22 01/23/22 17:51 17:55 17:56 Temperature Pulse Rate 84 88 80 Respiratory Rate Blood Pressure 124/60 Blood Pressure [Left] O2 Sat by Pulse 100 99 Oximetry O2 Sat by Pulse Oximetry [ Bilateral Throughout] 01/23/22 01/23/22 01/23/22 18:01 18:06 18:11 Temperature Pulse Rate 76 78 77 Respiratory Rate Blood Pressure 128/70 Blood Pressure [Left] O2 Sat by Pulse 99 100 100 Oximetry O2 Sat by Pulse Oximetry [ Bilateral Throughout] 01/23/22 01/23/22 01/23/22 18:16 18:21 18:26 Temperature Pulse Rate 78 81 79 Respiratory Rate Blood Pressure 141/69 Blood Pressure [Left] O2 Sat by Pulse 100 100 100 Oximetry O2 Sat by Pulse Oximetry [ Bilateral Throughout] 01/23/22 01/23/22 01/23/22 18:31 18:36 18:40 Temperature Pulse Rate 78 81 82 Respiratory Rate Blood Pressure 148/74 Blood Pressure [Left] O2 Sat by Pulse 100 100 Oximetry O2 Sat by Pulse Oximetry [ Bilateral Throughout] 01/23/22 01/23/22 01/23/22 18:41 18:46 18:51 Temperature Pulse Rate 88 86 86 Respiratory Rate Blood Pressure Blood Pressure [Left] O2 Sat by Pulse 100 100 100 Oximetry O2 Sat by Pulse Oximetry [ Bilateral Throughout] 01/23/22 01/23/22 01/23/22 18:55 18:56 19:01 Temperature Pulse Rate 94 H 94 H 88 Respiratory Rate Blood Pressure 141/71 Blood Pressure [Left] O2 Sat by Pulse 100 100 Oximetry O2 Sat by Pulse Oximetry [ Bilateral Throughout] 01/23/22 01/23/22 01/23/22 19:04 19:06 19:10 Temperature Pulse Rate 82 87 Respiratory Rate Blood Pressure 149/78 Blood Pressure [Left] O2 Sat by Pulse 100 Oximetry O2 Sat by Pulse 100 Oximetry [ Bilateral Throughout] 01/23/22 01/23/22 01/23/22 19:11 19:16 19:21 Temperature Pulse Rate 77 93 H 94 H Respiratory Rate Blood Pressure Blood Pressure [Left] O2 Sat by Pulse 100 100 100 Oximetry O2 Sat by Pulse Oximetry [ Bilateral Throughout] - Exam Cardiovascular: Regular rate Lungs: Normal air movement Vulva: both: normal FHR: category 1 Uterine Contraction Monitor Mode: Internal (IUPC) Cervical Dilatation: 9 Cervical Effacement Percentage: 100 station: -1 Uterine Contraction Pattern: Regular - Labs Labs: Laboratory Results - last 24 hr 01/22/22 01/23/22 17:56 10:30 SARS-CoV-2 (PCR) Negative Blood Type A POSITIVE Antibody Screen Negative
--- NOTE | 2022-01-23 22:57 | Event Note ---
Date: 01/23/22 Pt /+1. Attempted pushing with patient for ~ 1.5 hrs without any change to station. Spoke with patient regarding progress of labor and no change in station with pushing. Explained that a is recommended at this time d/t failure of descent. Dr. Koo updated and at bedside explaining risk to patient: heavy bleeding with a need for a blood transfusion, injury to organs in the area during the surgery that may require future surgeries, and life threatening infection. Pt also aware should she get again, she may need a for delivery. Pt verbalized understanding and wishes to proceed with a . All questions and concerns were addressed. Consents signed and on chart. RN and lost charge card clerk taking care of patient aware that a is needed. Anesthesia called and at bedside evaluating patient.
[2022-01-23] MEDS ORDERED: BICITRA ORAL LIQD 30ML ONE (23:26)
[2022-01-23] MEDS ORDERED: METOCLOPRAMIDE 10 MG/2 ML INJ ONE (23:27)
[2022-01-23] MEDS ORDERED: ceFAZolin/Water 2 GM/20 ML 2 GM/20 ML SYRINGE IV ONE (23:27)
[2022-01-23] MEDS ORDERED: FAMOTIDINE 20 MG/2 ML INJ IV ONE (23:27)
[2022-01-23] MEDS ORDERED: fentaNYL 100 MCG/2 ML INJ ONE (23:44)
[2022-01-23] MEDS ORDERED: ONDANSETRON 4 MG/2 ML INJ ONE (23:58)
[2022-01-23] MEDS ORDERED: BUPIVACAINE/PF (0.25%) 2.5 MG/ML 30 ML VIAL INFILTRATI ONE (23:59)
[2022-01-24] MEDS ORDERED: BICITRA ORAL LIQD 30ML PO ONE (00:30)
[2022-01-24] MEDS ORDERED: METOCLOPRAMIDE 10 MG/2 ML INJ IV ONE (00:30)
[2022-01-24] MEDS ORDERED: AZITHROMYCIN/NS 500 MG/250 ML 500 MG/250 ML BAG IV ONE (00:30)
[2022-01-24] MEDS ORDERED: ceFAZolin/Water 2 GM/20 ML 2 GM/20 ML SYRINGE IV NR (00:30)
[2022-01-24] MEDS ORDERED: FAMOTIDINE 20 MG/2 ML INJ IV ONE (00:30)
[2022-01-24] MEDS ORDERED: LACTATED RINGERS 1,000 ML IV SCH (02:30)
[2022-01-24] MEDS ORDERED: PROMETHAZINE 25 MG RECT SUPP PR PRN ×2 (02:35→05:39)
[2022-01-24] MEDS ORDERED: MORPHINE 4 MG/1 ML INJ IV PRN (02:35)
[2022-01-24] MEDS ORDERED: HYDROmorphone 1 MG/1 ML INJ IV PRN ×2 (02:35)
[2022-01-24] MEDS ORDERED: NALOXONE 0.4 MG/1 ML INJ IV PRN ×2 (02:35→05:39)
[2022-01-24] MEDS ORDERED: ONDANSETRON 4 MG/2 ML INJ IV PRN ×2 (02:35→05:39)
[2022-01-24] MEDS ORDERED: PROMETHAZINE 25 MG TAB PO PRN (02:35)
[2022-01-24] MEDS ORDERED: KETOROLAC 30 MG/1 ML INJ IV ONE (02:36)
--- NOTE | 2022-01-24 02:39 | Anesthesia Consultation ---
Anesthesia Consult and Med Hx Date of service: 01/24/22 - Airway Anesthetic Teeth Evaluation: Good ROM Head & Neck: Adequate Mental/Hyoid Distance: Adequate Mallampati Class: Class II Intubation Access Assessment: Probably Good - Pulmonary Exam CTA: Yes - Cardiac Exam Cardiac Exam: RRR - Pre-Operative Health Status ASA Pre-Surgery Classification: ASA2, Emergency Proposed Anesthetic Plan: MAC Nerve Block: [place] Tap Block - Pulmonary Hx Smoking: No Hx Asthma: No Hx Respiratory Symptoms: No SOB: No COPD: No Home Oxygen Therapy: No Hx Pneumonia: No Hx Sleep Apnea: No - Cardiovascular System Hx Hypertension: No Hx Coronary Artery Disease: No Hx Heart Attack/AMI: No Hx Angina: No Hx Percutaneous Transluminal Coronary Angioplasty (PTCA): No Hx Cardia Arrhythmia: No Hx Pacemaker: No Hx Internal Defibrillator: No Hx Valvular Heart Disease: No Hx Heart Murmur: No Hx Peripheral Vascular Disease: No - Central Nervous System Hx Neuromuscular Disorder: No Hx Seizures: No CVA: No Hx Back Pain: No Hx Psychiatric Problems: No - Gastrointestinal Hx Ulcer: No Hx Gastroesophageal Reflux Disease: No - Endocrine Hx Renal Disease: No Hx End Stage Renal Disease: No Hx Cirrhosis: No Hx Liver Disease: No Hx Insulin Dependent Diabetes: No Hx Non-Insulin Dependent Diabetes: No Hx Thyroid Disease: No Hx Hypothyroidism: No Hx Hyperthyroidism: No - Hematic Hx Anemia: No Hx Sickle Cell Disease: No - Other Systems Hx Alcohol Use: No Hx Substance Use: No Hx Cancer: No Hx Obesity: No
--- NOTE | 2022-01-24 02:45 | Event Note ---
Date: 01/23/22 Late Entry: Patient with minimal descent despite adequate pushing. Discussed proceeding with C/S. Risks reviewed. Patient allowed to ask questions.
--- NOTE | 2022-01-24 02:46 | Operative Report ---
Operative Report Operative Report: Date of Procedure: 01/24/2022 Preoperative diagnosis: arrest of descent, IUP @ 41 weeks Postoperative diagnosis: same, s/p section Procedure: Primary low transverse section Surgeon: Maritza Koo MD Manager Internship: Jes Connors CNM Anesthesia: Epidural Complications: none EBL: 1300 ml IV Fluids: 1500 ml UOP: 400 ml, clear urine at the end of procedure Indications: arrest of decent Findings: 3550 g male infant in ROP position cephalic presentation with Apgars 8 & 9 Amniotic fluid thick seedy meconium Fallopian tubes normal in appearance bilaterally Ovaries normal in appearance bilaterally Procedure: The patient was taken to the operating room where epidural anesthesia was found to be adequate. 2 g Ancef was given prior to the procedure. She was then prepared and draped in the usual sterile fashion in the dorsal supine position with a leftward tilt. A Pfannenstiel skin incision was made with the scalpel and carried through to the underlying layer of fascia with the bovie. The fascia was incised in the midline and the incision extended laterally. The superior aspect of the fascial incision was then grasped with the Su's clamps, elevated, and the underlying rectus muscles dissected off bluntly and with sharp dissection using bovie. Attention was then turned to the inferior aspect of this incision which, in a similar fashion, was grasped, tented up with the Su clamps, and the rectus was dissected off bluntly and with sharp dissection. The rectus muscles were then in the midline, and the peritoneum identified and entered bluntly. The peritoneal incision was then extended superiorly and inferiorly with good visualization of the bladder. The bladder blade was then inserted and the lower uterine segment incised in a transverse fashion with the scalpel. The uterine incision was then extended laterally digitally. The bladder blade was then removed and the infant was delivered via ROP position. The nose and mouth were suctioned with the bulb suction and the cord clamped and cut. The infant was handed off to the waiting pediatricians.The placenta was then removed; the uterus exteriorized and cleared of all clots and debris. Several areas long the hysterotomy noted to have active bleeding and clamped for hemostasis. The uterine incision was repaired with 0 vicryl in a running locked fashion. An imbrication layer was done. Areas of oozing was noted and figure of eight sutures were placed giving excellent hemostasis. Uterus returned to the abdomen. An additional area of oozing noted and a figure of eight suture was placed giving hemostasis. Surgicel was then applied over the incision. The rectus muscle was reapproximated with 2-0 vicryl. The fascia was reapproximated with 0 vicryl in a running fashion. Subcutaneous layer reapproximated with interrupted sutures of 2-0 vicryl. The skin was closed with 4-0 monocryl subcuticular stitch and the incision sealed with Steri- strips.The patient tolerated the procedure well. Sponge, lap, needle counts correct X 2. The patient was taken to the recovery room in a stable condition.
--- NOTE | 2022-01-24 02:52 | Progress Note ---
Regional Anesthesia Block - Regional Anesthesia Block Start Time: 02:08 Stop Time: 02:15 Performed By:: ANABELLA LUCIANO Procedure: Patient consented for TAP block for post surgical pain management. Patient identified, monitors placed, and time out performed. TAP identified bilaterally via ultrasound. Skin prepped bilaterally with [chlorhexidine] and [22g stimuplex] needle advanced to the TAP. Marcaine 0.25% 30ml injected under ul trasound guidance on the [left] side. [Marcaine 0.25% 30ml+8mg decadron injected under ultrasound guidance on the [right] side. Negative aspiration every 5mL, No change in heart rate or rhythm. Patient tolerated the procedure well. No apparent complications seen.
[2022-01-24] MEDS ORDERED: fentaNYL-BUPIV 2 MCG/ML-0.125% 200 MCG/100 ML BAG EPIDURAL SCH (03:00)
[2022-01-24 04:33] LABS: Hematocrit 33.2 % (30.3-42.9); Hemoglobin 11.1 gm/dl (10.1-14.3); Mean Corpuscular HGB Conc 33 % (30-34); Mean Corpuscular Volume 90 fl (79-97); Platelet Count 223 K/mm3 (140-440)
[2022-01-24] MEDS ORDERED: LANOLIN/ZINC/DIMETHICONE (LANSINOH) 7 GM TP PRN (05:39)
[2022-01-24] MEDS ORDERED: SENNOSIDES 8.6 MG TAB PO PRN (05:39)
[2022-01-24] MEDS ORDERED: SIMETHICONE 80 MG CHEW TAB PO PRN (05:39)
[2022-01-24] MEDS ORDERED: WITCH HAZEL/ GLYCERIN PAD TP PRN (05:39)
[2022-01-24] MEDS ORDERED: MAGNESIUM HYDROXIDE (MOM) ORAL LIQD UDC PO PRN (05:39)
[2022-01-24] MEDS ORDERED: HYDROCORTISONE 25 MG RECTAL SUPP PR PRN (05:39)
[2022-01-24] MEDS ORDERED: OXYTOCIN DRIP 30 UNITS/500 ML BAG IV SCH (05:39)
[2022-01-24] MEDS ORDERED: ACETAMINOPHEN 500 MG TAB PO PRN (05:52)
[2022-01-24] MEDS: MORPHINE 4 MG/1 ML INJ IV PRN (06:06)
[2022-01-24] MEDS ORDERED: D5W/LACTATED RINGERS 1,000 ML IV SCH (07:00)
[2022-01-24 07:37] LABS: Band Neutrophils # (Manual) 0.5 K/mm3; Basophils % (Manual) 0 % (0.0-1.8); Eosinophils % (Manual) 0 % (0.0-4.3); Total Cells Counted 100
[2022-01-24 07:38] LABS: Platelet Estimate Consistent w Auto
--- NOTE | 2022-01-24 08:22 | Progress Note ---
Assessment and Plan Patient c/o pain and cramping in lower abdomen, H&H ordered for 1419 today. VSSAF (b/p 120-140/60-70's). Dressing dry and intact, gay to BSB with clear yellow urine. - Patient Problems (1) BMI 37.0-37.9, adult Current Visit: Yes Status: Acute (2) delivery delivered Current Visit: Yes Status: Acute Plan to address problem: continue postop pathway Advance diet and activity as tolerated Subjective - Subjective Date of service: 01/24/22 Principal diagnosis: postop day #0, < 12hrs post delivery Patient reports: no nauseated [place]: doing well Objective - Vital Signs Latest vital signs: Vital Signs Temp Pulse Resp BP BP Pulse Ox Pulse Ox 01/24/22 04:00 99 F 01/24/22 03:50 99 H 17 147/74 99 01/24/22 03:35 104 H 18 133/71 99 01/24/22 03:20 99 H 16 130/69 100 01/24/22 03:05 103 H 15 129/71 99 01/24/22 02:50 101 F H 101 H 20 147/74 99 01/24/22 02:35 102 H 24 137/62 100 01/24/22 02:30 102 H 19 129/61 100 01/24/22 02:26 102 F H 107 H 23 124/56 100 01/23/22 23:46 96 H 100 01/23/22 23:41 89 100 01/23/22 23:40 94 H 150/78 01/23/22 23:36 90 100 01/23/22 23:31 94 H 99 01/23/22 23:26 95 H 100 01/23/22 23:25 96 H 137/79 01/23/22 23:11 99 H 99 01/23/22 23:10 100 H 139/71 01/23/22 23:06 111 H 99 01/23/22 23:01 91 H 99 01/23/22 22:56 103 H 98 01/23/22 22:55 96 H 114/65 01/23/22 22:51 92 H 98 01/23/22 22:46 109 H 97 01/23/22 22:41 107 H 98 01/23/22 22:36 118 H 99 01/23/22 22:31 88 99 01/23/22 22:26 99 H 98 01/23/22 22:25 96 H 133/66 01/23/22 22:21 90 99 01/23/22 22:16 102 H 99 01/23/22 22:11 121 H 141/72 99 01/23/22 22:06 97 H 100 01/23/22 22:01 117 H 100 01/23/22 21:56 103 H 100 01/23/22 21:51 100 H 100 01/23/22 21:46 102 H 100 01/23/22 21:41 102 H 100 01/23/22 21:36 101 H 100 01/23/22 21:35 98 F 20 01/23/22 21:31 99 H 100 01/23/22 21:26 89 99 01/23/22 21:25 88 144/79 01/23/22 21:21 96 H 100 01/23/22 21:16 90 99 01/23/22 21:11 95 H 99 01/23/22 21:10 94 H 134/79 01/23/22 21:06 93 H 99 01/23/22 21:01 89 99 01/23/22 20:56 92 H 132/75 99 01/23/22 20:51 100 H 100 01/23/22 20:46 95 H 100 01/23/22 20:41 119 H 100 01/23/22 20:40 96 H 127/60 01/23/22 20:36 97 H 100 01/23/22 20:31 107 H 100 01/23/22 20:26 97 H 100 01/23/22 20:25 103 H 150/73 01/23/22 20:21 99 H 100 01/23/22 20:16 116 H 100 01/23/22 20:11 107 H 100 01/23/22 20:10 151 H 144/71 01/23/22 20:06 94 H 100 01/23/22 20:01 106 H 100 01/23/22 19:56 96 H 100 01/23/22 19:55 94 H 159/65 01/23/22 19:51 93 H 99 01/23/22 19:46 91 H 100 01/23/22 19:41 89 100 01/23/22 19:36 85 100 01/23/22 19:31 95 H 100 01/23/22 19:26 92 H 115/58 99 01/23/22 19:21 94 H 100 01/23/22 19:16 93 H 100 01/23/22 19:11 77 100 01/23/22 19:10 87 149/78 01/23/22 19:06 82 100 01/23/22 19:04 100 01/23/22 19:01 88 100 01/23/22 18:56 94 H 100 01/23/22 18:55 94 H 141/71 01/23/22 18:51 86 100 01/23/22 18:46 86 100 01/23/22 18:41 88 100 01/23/22 18:40 82 148/74 01/23/22 18:36 81 100 01/23/22 18:31 78 100 01/23/22 18:26 79 141/69 100 01/23/22 18:21 81 100 01/23/22 18:16 78 100 01/23/22 18:11 77 128/70 100 01/23/22 18:06 78 100 01/23/22 18:01 76 99 01/23/22 17:56 80 99 01/23/22 17:55 88 124/60 01/23/22 17:51 84 100 01/23/22 17:46 79 99 01/23/22 17:41 81 100 01/23/22 17:40 82 131/61 01/23/22 17:36 80 100 01/23/22 17:31 77 100 01/23/22 17:26 88 100 01/23/22 17:25 83 128/58 01/23/22 17:21 83 100 01/23/22 17:16 94 H 100 01/23/22 17:14 98.7 F 81 18 126/60 100 01/23/22 17:11 81 100 01/23/22 17:10 81 126/60 01/23/22 17:06 80 100 01/23/22 17:01 77 98 01/23/22 16:56 78 123/60 99 01/23/22 16:51 82 98 01/23/22 16:46 83 99 01/23/22 16:41 86 99 01/23/22 16:40 74 113/58 01/23/22 16:36 77 99 01/23/22 16:31 76 99 01/23/22 16:26 79 100 01/23/22 16:25 75 123/58 01/23/22 16:21 81 99 01/23/22 16:16 84 99 01/23/22 16:11 72 99 01/23/22 16:10 75 126/60 01/23/22 16:06 78 99 01/23/22 16:01 85 100 01/23/22 15:56 82 100 01/23/22 15:55 80 130/62 01/23/22 15:51 84 100 01/23/22 15:46 80 100 01/23/22 15:41 87 100 01/23/22 15:40 80 133/62 01/23/22 15:36 92 H 100 01/23/22 15:31 87 99 01/23/22 15:30 90 109/56 01/23/22 15:26 93 H 98/53 99 01/23/22 15:20 82 99 01/23/22 15:15 90 99 01/23/22 15:10 92 H 99 01/23/22 15:05 90 98 01/23/22 15:00 86 100 01/23/22 14:55 99 H 108/55 100 01/23/22 14:50 81 100 01/23/22 14:45 81 100 01/23/22 14:40 89 124/60 100 01/23/22 14:35 89 100 01/23/22 14:30 96 H 100 01/23/22 14:25 84 100 01/23/22 14:23 84 130/60 01/23/22 14:22 78 132/61 01/23/22 14:21 82 134/63 01/23/22 14:20 85 133/60 100 01/23/22 14:19 94 H 131/63 01/23/22 14:18 85 133/62 01/23/22 14:17 92 H 129/60 01/23/22 14:16 90 132/58 01/23/22 14:15 83 133/61 100 01/23/22 14:13 81 151/67 01/23/22 14:11 88 146/67 01/23/22 14:10 86 147/69 99 01/23/22 14:09 82 151/69 01/23/22 14:06 82 140/68 01/23/22 14:05 83 99 01/23/22 14:03 76 138/68 01/23/22 14:00 74 136/78 99 01/23/22 13:55 85 99 01/23/22 13:44 74 97 01/23/22 13:39 73 98 01/23/22 13:34 75 99 01/23/22 13:29 75 99 01/23/22 13:28 75 81 L 01/23/22 13:21 83 97 01/23/22 13:16 80 98 01/23/22 13:11 81 96 01/23/22 13:06 83 97 01/23/22 13:03 72 142/70 01/23/22 13:01 77 99 01/23/22 12:56 79 99 01/23/22 12:51 85 99 01/23/22 12:46 81 99 01/23/22 12:41 83 97 01/23/22 12:36 75 97 01/23/22 12:34 77 140/71 01/23/22 12:31 82 95 01/23/22 12:26 88 96 01/23/22 12:21 78 98 01/23/22 12:16 79 98 01/23/22 12:11 73 96 01/23/22 12:06 74 96 01/23/22 12:04 73 127/60 01/23/22 12:01 75 96 01/23/22 11:56 76 96 01/23/22 11:51 77 94 01/23/22 11:48 98.5 F 78 16 139/64 97 01/23/22 11:46 83 96 01/23/22 11:41 78 95 01/23/22 11:36 89 97 01/23/22 11:34 78 139/65 01/23/22 11:31 74 96 01/23/22 11:26 88 97 01/23/22 11:21 78 94 01/23/22 11:16 85 95 01/23/22 11:11 84 95 01/23/22 11:06 83 95 01/23/22 11:03 77 138/66 01/23/22 11:01 84 97 01/23/22 10:56 82 96 01/23/22 10:51 88 96 01/23/22 10:48 18 01/23/22 10:46 82 98 01/23/22 10:41 83 L 01/23/22 10:39 28 L 83 L 01/23/22 10:36 87 98 01/23/22 10:33 80 126/61 01/23/22 10:31 81 98 Intake and Output 01/23/22 01/24/22 01/24/22 23:59 07:59 15:59 Intake Total 1019.0 1450 Output Total 500 1200 Balance 519.0 250 Intake: IV 1019.0 1450 Lactated Ringers 1,000 ml 1000 @ 125 mls/hr IV DIRECT [facility] Rx#:[id number] PITOCin/NS 30 UNIT/500ML 19.0 30 units In 500 ml @ 1 MILLIUNITS/MIN 1 mls/hr IV DIRECT ONE Rx#: [id number] Output: Urine 500 1200 Indwelling Catheter 500 Uretheral (Gay) 600 Other: Total, Output Amount 500 Estimated Blood Loss 1,300 - Exam Breasts: Present: normal Cardiovascular: Present: Regular rate Lungs: Present: Clear to auscultation, Normal air movement Abdomen: Present: normal appearance, soft. Absent: distention, tenderness, guarding Vulva: both: normal Uterus: Present: normal, firm, fundal height at umbilicus Extremities: Present: normal Deep Tendon Reflex Grade: Normal +2 Incision: Present: normal, dry, dressed - Labs Labs: Abnormal lab results 01/24/22 Range/Units 04:19 WBC 18.3 H (4.5-11.0) K/mm3 Seg Neuts % (Manual) 87.0 H (40.0-70.0) % Lymphocytes % (Manual) 9.0 L (13.4-35.0) % Seg Neutrophils # Man 15.9 H (1.8-7.7) K/mm3
[2022-01-24] MEDS: KETOROLAC 30 MG/1 ML INJ IV SCH ×3 (08:49→23:43)
[2022-01-24] MEDS: ceFAZolin/NS 1 GM/50 ML 1 GM/50 ML BAG IV SCH ×2 (08:50→16:54)
[2022-01-24] MEDS: HYDROcodone/ACETAMINOPHEN 5-325 MG TAB PO PRN ×2 (11:03→17:15)
[2022-01-24] MEDS: FERROUS SULFATE 325 MG TAB PO SCH (11:05)
--- NOTE | 2022-01-24 15:46 | Post Anesthesia Evaluation ---
- Post Anesthesia Evaluation Patient Participated: Yes Airway Patent: Yes Stable Respiratory Function: Yes Nausea/Vomiting: No Temp > 96.8F: Yes Pain Manageable: Yes Adequeate Hydration: Yes Anesthesia Complications: No Block Receding Appropriately: Yes Patient on Ventilator: No
[2022-01-24 19:33] LABS: Hematocrit 28.5 % (30.3-42.9); Hemoglobin 9.7 gm/dl (10.1-14.3)
[2022-01-25] MEDS: ceFAZolin/NS 1 GM/50 ML 1 GM/50 ML BAG IV SCH ×2 (01:25→09:58)
[2022-01-25] MEDS: HYDROcodone/ACETAMINOPHEN 5-325 MG TAB PO PRN ×3 (02:02→21:38)
[2022-01-25] MEDS ORDERED: TETANUS,DIPH,PERTUSS(ACELL) VACCINE 0.5 ML SYRINGE IM ONE (06:00)
[2022-01-25] MEDS: IBUPROFEN 800 MG TAB PO SCH ×5 (07:26→21:40)
--- NOTE | 2022-01-25 08:00 | Progress Note ---
Assessment and Plan patient sitting on side of bed c/o sharp burning pain at her incision after AM care. Encouraged pt to lay back and rn called for pain medications. incision still dressed - dry and intact. dressing needs to be removed today after pain medication. lochia scant, b/p is normal, maternal hr range 92-117bpm, AF. Continue postop pathway. encouraged PO hydration, ISS and increased activity. Anticipate d/c home tomorrow. - Patient Problems (1) BMI 37.0-37.9, adult Current Visit: Yes Status: Acute (2) delivery delivered Current Visit: Yes Status: Acute Subjective - Subjective Date of service: 01/25/22 Principal diagnosis: postop day #1 s/p c/s Patient reports: appetite normal, voiding normally, flatus, pain poorly controlled, ambulating normally, no dizzy ambulation, no nauseated [place]: doing well, bottle feeding Objective - Vital Signs Latest vital signs: Vital Signs Temp Pulse Resp BP Pulse Ox Pulse Ox 01/25/22 00:37 98.9 F 111 H 18 128/64 96 01/24/22 21:56 98.3 F 97 H 18 123/75 99 01/24/22 21:00 99 01/24/22 18:21 99.6 F 117 H 18 125/63 98 01/24/22 12:57 98.1 F 92 H 18 131/73 98 01/24/22 10:00 100 01/24/22 08:03 98.8 F 98 H 18 139/66 96 Intake and Output 01/24/22 01/25/22 01/25/22 23:59 07:59 15:59 Intake Total 50 240 Output Total 300 300 Balance -250 -60 Intake: IV 50 ANCEF/NS 1 GM/50 ML 1 gm 50 In 50 ml @ 100 mls/hr IV Q8H [facility] Rx#:[id number] Intake, Free Water 240 Output: Urine 300 300 Void 300 300 Other: Total, Output Amount 300 300 - Exam Breasts: Present: normal Cardiovascular: Present: Regular rate Lungs: Present: Clear to auscultation, Normal air movement Abdomen: Present: normal appearance, soft Vulva: both: normal Uterus: Present: normal, firm, fundal height at umbilicus Extremities: Present: normal Deep Tendon Reflex Grade: Normal +2 Incision: Present: normal, dry, dressed - Labs Labs: Abnormal lab results 01/24/22 Range/Units 19:19 Hgb 9.7 L (10.1-14.3) gm/dl Hct 28.5 L (30.3-42.9) %
[2022-01-25] MEDS: MORPHINE 4 MG/1 ML INJ IV PRN (08:15)
[2022-01-25] MEDS: FERROUS SULFATE 325 MG TAB PO SCH (09:58)
[2022-01-26] MEDS: IBUPROFEN 800 MG TAB PO SCH ×5 (01:17→21:18)
[2022-01-26] MEDS: HYDROcodone/ACETAMINOPHEN 5-325 MG TAB PO PRN ×2 (06:43→15:23)
--- NOTE | 2022-01-26 06:49 | Progress Note ---
Assessment and Plan A: 31 y.o. s/p primary , POD #2. - Patient Problems (1) delivery delivered Current Visit: Yes Status: Acute Plan to address problem: Continue with care. Encourage ambulation. Pt to continue to wear compression stockings. Advance diet as tolerated. Pain medication as ordered. Abdominal binder to bedside. Anticipate discharge home in AM. Subjective - Subjective Date of service: 01/26/22 Principal diagnosis: postop day #2 s/p c/s Interval history: Pt doing well. States that her swelling has decreased significantly since yesterday. She denies [place], blurred vision, spots before her eyes, chest pain, shortness of breath and upper abdominal pain. She is aware that she will need to report these symptoms to the RN immediately. States that she has not been up walking around. Encouraged patient to walk. We discussed in detail incision care at home and expectations when discharged home. Pt states that she is still having some pain in the incision area. We discussed asking for pain medication when needed and how to take her pain medication at home. Explained that she will have some soreness at home and how to handle this soreness. Abdominal binder ordered. Patient reports: appetite normal, voiding normally, pain well controlled, fla tus, ambulating normally : doing well, other (Infant has been under the bili lights and will need an x-ray today. ) Objective - Vital Signs Latest vital signs: Vital Signs Temp Pulse Resp BP Pulse Ox Pulse Ox 01/26/22 03:09 98 01/26/22 00:57 97.8 F 109 H 18 125/57 97 01/26/22 00:36 98 01/25/22 15:10 98.7 F 107 H 24 128/74 99 01/25/22 08:26 98 01/25/22 07:59 98.5 F 104 H 24 122/64 98 Intake and Output 01/25/22 01/25/22 01/26/22 14:59 22:59 06:59 Intake Total 480 1250 600 Output Total 100 Balance 480 1150 600 Intake: IV 1050 ANCEF/NS 1 GM/50 ML 1 gm 50 In 50 ml @ 100 mls/hr IV Q8H [facility] Rx#:[id number] D5lr 1,000 ml @ 125 mls/ 1000 hr IV DIRECT [facility] Rx#: [id number] Oral 480 200 Intake, Free Water 600 Output: Urine 100 Void 100 Other: Total, Intake Amount 120 200 Total, Output Amount 100 # Voids Void 1 2 - Exam Narrative Exam: Blood pressure ranges have been 120's/50-80's. Breasts: Present: deferred Cardiovascular: Present: Regular rate Lungs: Present: Normal air movement Abdomen: Present: normal appearance, soft Vulva: both: normal Uterus: Present: normal, firm Extremities: Present: edema (Trace edema noted. Compression stockings on. ) Deep Tendon Reflex Grade: Normal +2 Incision: Present: normal, dry, intact, other (Dressing removed. No drainage or s/sx of infection noted. )
[2022-01-26] MEDS: FERROUS SULFATE 325 MG TAB PO SCH (10:20)
[2022-01-27] MEDS: HYDROcodone/ACETAMINOPHEN 5-325 MG TAB PO PRN ×2 (02:54→10:03)
[2022-01-27] MEDS: FERROUS SULFATE 325 MG TAB PO SCH (10:02)
--- NOTE | 2022-01-27 12:06 | Discharge Summary ---
Providers - Providers Date of Admission: 01/22/22 16:13 Date of discharge: 01/27/22 Attending physician: DAVID GRULLON Primary care physician: DAVID GRULLON Hospitalization Reason for admission: induction of labor (due to oligo) Delivery: Procedure: section Procedure details: see op notes Incision: normal, dry, intact (open to air with steristrips in place) Other procedures: none complications: none Discharge diagnosis: IUP at term delivered baby: male Hospital course: Patient was admitted to the hospital for induction of labor due to low amniotic fluid. Patient underwent section due to failure to descend. Patient postoperative course was noncomplicated. Patient discharged home on postope rative day #3. Patient to follow-up in office in 1 week. Condition at discharge: Good Disposition: 01 HOME / SELF CARE / HOMELESS Plan - Discharge Medications Prescriptions: Docusate Sodium [Colace] 100 mg PO BID #60 capsule Lidocain2.5%/Prilocai2.5% [Emla] 1 applic TP ONCE #1 tube Ibuprofen [Motrin 800 MG tab] 800 mg PO Q8HR #30 tablet oxyCODONE /ACETAMINOPHEN [Percocet 5/325] 1 tab PO Q6HR PRN #20 tablet PRN Reason: Pain Vit-Fe Fumar-FA [ Vitamin] 1 tab PO QDAY #30 tablet - Provider Discharge Summary Activity: no sex for 6 weeks, no heavy lifting 4 weeks, no strenuous exercise Diet: routine Instructions: routine Additional instructions: [] Smoking cessation referral if applicable(refer to patient education folder for contact #) [] Refer to [facility] Booklet Call your doctor immediately for: * Fever > 100.5 * Heavy vaginal bleeding ( >1 pad per hour) * Severe persistent headache * Shortness of breath * Reddened, hot, painful area to leg or breast * Drainage or odor from incision. * Keep incision clean and dry at all times and follow doctor's instructions regarding bathing/showering - Follow up plan Follow up: DAVID GRULLON MD [Primary Care Provider] - 7 Days Forms: [facility] Discharge Summary
[2022-01-27 13:48] VITALS: BP 131/73
[2022-01-27] MEDS: IBUPROFEN 800 MG TAB PO SCH (14:14)
== END 2022-01-27 14:50 | disposition home or self-care (01) | DRG 765 ==
LOC: TRG 16:12 → LD 16:12 → TRG 18:02 → OB 01-24 05:07
PROVIDERS: ADMIT Obstetrics & Gynecology; ATTEND Obstetrics & Gynecology
PROC: 10H07YZ Insertion of Other Device into Products of Conception, Via Natural or Artificial Opening (ICD-10-PCS; 2022-01-23)
PROC: 10D00Z1 Extraction of Products of Conception, Low, Open Approach (ICD-10-PCS; principal; 2022-01-24)
PROC: 3E0T3BZ Introduction of Anesthetic Agent into Peripheral Nerves and Plexi, Percutaneous Approach (ICD-10-PCS; 2022-01-24)
PROC: 3E0234Z Introduction of Serum, Toxoid and Vaccine into Muscle, Percutaneous Approach (ICD-10-PCS; 2022-01-25)
DX: O62.1 Secondary uterine inertia (principal); O41.03X0 Oligohydramnios, third trimester, not applicable or unspecified; O48.0 Post-term pregnancy; Z3A.41 41 weeks gestation of pregnancy; Z37.0 Single live birth; Z20.822 Contact with and (suspected) exposure to COVID-19; Z23 Encounter for immunization
CPT/HCPCS: 36415; 59200; 85007; 85014; 85018; 85025; 85027; 86850; 86900; 86901; 99211; G0378; J3490; J7060; G0463; J0595; J0690; J1885; J2270; J2405; J2590; J2765; J3010; J7120; J7121; U0003